=== PATIENT | male | born 1940 ===

== ENCOUNTER 2020-01-06 06:46 | Outpatient (REF) | payer MEDICARE, SELFPAY ==
[2020-01-06 11:08] LABS: MANUAL DIFF FLAG NO
[2020-01-06 11:13] LABS: Basophils Percent Auto 0.5 % (0-2); Eosinophils Absolute Auto 0.3 X10*3/uL (0.0-0.4); Eosinophils Percent Auto 3.3 % (0-4); Hematocrit 44.1 % (42-52); Hemoglobin 13.8 g/dl (14.0-18.0); Imm Gran Abs Auto 0.03 X10*3/uL (0.00-0.03); Imm Gran Pct Auto 0.4 % (0.0-0.4); Lymphocytes Absolute Auto 1.9 X10*3/uL (1.2-4.9); Lymphocytes Percent Auto 23.1 % (20-40); Mean Corpuscular HGB Conc 31.3 g/dl (31.0-36.0); Mean Corpuscular Hemoglobin 26.8 pg (27.0-33.0); Mean Corpuscular Volume 85.8 fL (80-98); Mean Platelet Volume 10.4 fL (9.4-12.4); Monocytes Absolute Auto 0.8 X10*3/uL (0.1-1.2); Monocytes Percent Auto 9.3 % (2-11); Neutrophils Absolute Auto 5.3 X10*3/uL (2.0-8.3); Neutrophils Percent Auto 63.4 % (45-73); Platelet Count 235 X10*3/uL (160-400); Red Blood Count 5.14 X10*6/uL (4.60-5.80); Red Cell Distribution Width 13.8 % (11.0-16.0); White Blood Count 8.4 X10*3/uL (4.8-10.8)
[2020-01-06 12:01] LABS: Alanine Aminotransferase 17 U/L (0-40); Albumin Level 4.2 g/dL (3.5-5.0); Alkaline Phosphatase 78 U/L (39-117); Anion Gap 15 (12-20); Aspartate Amino Transferase 18 U/L (5-37); Bilirubin Total 0.8 mg/dL (0.0-1.0); Blood Urea Nitrogen 21 mg/dL (9-16); Calcium 8.4 mg/dL (8.4-10.2); Carbon Dioxide 25 mmol/L (22-29); Chloride 106 mmol/L (96-108); Estimated Glomerular Filt Rate > 60; Glucose Random 95 mg/dL (60-115); Potassium 4.7 mmol/l (3.3-5.1); Sodium 141 mmol/L (135-145); Total Protein 6.6 g/dL (6.5-8.0)
== END 2020-01-06 06:47 | disposition home or self-care (01) ==
LOC: HO.HMGCLDS 06:46
PROVIDERS: PCP Internal Medicine; Visit Provider Internal Medicine
DX: Z13.89 Encounter for screening for other disorder (principal)
CPT/HCPCS: 36415; 80053; 85025

== ENCOUNTER 2020-06-26 07:09 | Outpatient (REF) | payer MEDICARE, SELFPAY ==
[2020-06-26 11:15] LABS: MANUAL DIFF FLAG NO
[2020-06-26 11:35] LABS: Basophils Absolute Auto 0.1 X10*3/uL (0.0-0.2); Basophils Percent Auto 0.6 % (0-2); Eosinophils Absolute Auto 0.3 X10*3/uL (0.0-0.4); Eosinophils Percent Auto 3.4 % (0-4); Hematocrit 42.3 % (42-52); Hemoglobin 13.5 g/dl (14.0-18.0); Imm Gran Abs Auto 0.03 X10*3/uL (0.00-0.03); Imm Gran Pct Auto 0.4 % (0.0-0.4); Lymphocytes Absolute Auto 1.9 X10*3/uL (1.2-4.9); Lymphocytes Percent Auto 24.1 % (20-40); Mean Corpuscular HGB Conc 31.9 g/dl (31.0-36.0); Mean Corpuscular Hemoglobin 27.5 pg (27.0-33.0); Mean Corpuscular Volume 86.2 fL (80-98); Mean Platelet Volume 10.1 fL (9.4-12.4); Monocytes Absolute Auto 0.7 X10*3/uL (0.1-1.2); Monocytes Percent Auto 8.4 % (2-11); Neutrophils Percent Auto 63.1 % (45-73); Platelet Count 230 X10*3/uL (160-400); Red Blood Count 4.91 X10*6/uL (4.60-5.80); Red Cell Distribution Width 13.5 % (11.0-16.0); White Blood Count 7.9 X10*3/uL (4.8-10.8)
[2020-06-26 12:05] LABS: Alanine Aminotransferase 18 U/L (0-40); Albumin Level 4.1 g/dL (3.5-5.0); Alkaline Phosphatase 76 U/L (39-117); Anion Gap 13 (12-20); Aspartate Amino Transferase 18 U/L (5-37); Bilirubin Total 0.7 mg/dL (0.0-1.0); Blood Urea Nitrogen 21 mg/dL (9-16); Calcium 8.9 mg/dL (8.4-10.2); Carbon Dioxide 27 mmol/L (22-29); Chloride 107 mmol/L (96-108); Cholesterol 143 mg/dL; Estimated Glomerular Filt Rate 59; Glucose Random 98 mg/dL (60-115); HDL Cholesterol 48 mg/dL; LDL Cholesterol Calculated 77 mg/dl; Potassium 4.7 mmol/L (3.3-5.1); Sodium 142 mmol/L (135-145); Total Protein 6.7 g/dL (6.5-8.0); Triglycerides 93 mg/dL
== END 2020-06-26 07:10 | disposition home or self-care (01) ==
LOC: HO.HMGCLDS 07:09
PROVIDERS: PCP Internal Medicine; Visit Provider Internal Medicine
DX: I10 Essential (primary) hypertension (principal); E78.00 Pure hypercholesterolemia, unspecified
CPT/HCPCS: 36415; 80053; 80061; 85025

== ENCOUNTER 2021-01-02 06:44 | Outpatient (REF) | payer MEDICARE, SELFPAY ==
[2021-01-02 12:16] LABS: Alanine Aminotransferase 18 U/L (0-40); Alkaline Phosphatase 70 U/L (39-117); Anion Gap 13 (12-20); Aspartate Amino Transferase 19 U/L (5-37); Bilirubin Total 0.5 mg/dL (0.0-1.0); Blood Urea Nitrogen 21 mg/dL (9-16); Calcium 8.7 mg/dL (8.4-10.2); Carbon Dioxide 26 mmol/L (22-29); Chloride 106 mmol/L (96-108); Cholesterol 135 mg/dL; Estimated Glomerular Filt Rate 54; Glucose Random 99 mg/dL (60-115); HDL Cholesterol 45 mg/dL; LDL Cholesterol Calculated 70 mg/dl; Potassium 4.4 mmol/L (3.3-5.1); Sodium 141 mmol/L (135-145); Total Protein 6.4 g/dL (6.5-8.0); Triglycerides 103 mg/dL
== END 2021-01-02 06:45 | disposition home or self-care (01) ==
LOC: HO.HMGCLDS 06:44
PROVIDERS: PCP Internal Medicine; Visit Provider Internal Medicine
DX: E78.00 Pure hypercholesterolemia, unspecified (principal); I10 Essential (primary) hypertension
CPT/HCPCS: 36415; 80053; 80061

== ENCOUNTER → 2021-03-21 15:15 | Outpatient (BNVA) | payer MEDICARE, SELFPAY | PROVIDERS: PCP Internal Medicine; Visit Provider Internal Medicine Cardiovascular Disease | DX: R06.00 Dyspnea, unspecified (principal) | CPT/HCPCS: 93005; 99202 ==

== ENCOUNTER → 2021-04-17 09:24 | Outpatient (REF) | payer MEDICARE, SELFPAY ==
--- NOTE | ~2021-04-17 | NM_ITS ---
Lexiscan Myocardial perfusion study Indication: Shortness of breath, assess for coronary disease and ischemia Technique: The patient was brought in for a Lexiscan perfusion study on 04/17/2021 and was injected 0.4 mg of Lexiscan intravenously. Within a minute of this injection 35 mCi of sestamibi was given intravenously. Images were obtained using the SPECT gamma camera interlaced with the gating device. Images were obtained in supine position. Resting perfusion study was performed on 04/18/2021. Patient was administered 30 mCi of sestamibi intravenously at rest. Images were then obtained in supine position. Total DLP 85mGy-cm. Images were processed with the software and compared side to side in short axis, horizontal long axis and vertical long axis views. Findings: Raw acquisition was reviewed. The stress perfusion study showed diminished tracer uptake in the distal part of lateral wall; apex; inferior wall. There is good improvement with CT attenuation correction and hence suggestive of some combination of soft tissue as well as diaphragmatic attenuation artifact. Gating not performed due to bigeminy. Resting study shows diminished tracer uptake in the distal part of lateral wall. There is improvement with CT attenuation correction and hence could be from soft tissue attenuation artifact. Gating not performed due to bigeminy. The findings are consistent with no clear reversible or fixed perfusion defects. NM/NM cardiolite stress test Impression: 1. Myocardial perfusion imaging study shows likely normal myocardial perfusion. No clear evidence of any ischemia or infarction. 2. Gating not performed due to PVCs.
--- NOTE | 2021-04-17 09:28 | CA_ITS ---
Acquisition Time: 2021-04-17 09:28:54 Total Exercise Time: 00:04:11 Test Indications: Dyspnea Medications: AMLODIPINE ATORVASTATIN GABAPENTIN Protocol: HAMMAD Max HR: 123 BPM 89% of Pred: 138 BPM Max BP: 142/052 mmHG Max Work Load: 6.0 METS Exercise stress test with exercise 4 min 11 sec of Hammad protocol, with moderate shortness of breath, difficulty with speed of treadmill, suboptiimal heart rate and need to stop exercise. Assisted to sitting position and when breathing improved, testing changed to a pharmacological stress test while sitting and kicking his legs, without anginal symptoms, with frequent PACs, and isolated PVCs, 2 ventricular cuplets, with normotensive response to injection, with nondiagnostic EKG for ischemia. Nuclear images pending. Test reviewed with Dr Kerns. Referred By: Jaxson Kerns Overread By: DAKOTA MARADIAGA
== END ==
LOC: HO.CARD 09:24
PROVIDERS: Visit Provider Internal Medicine Cardiovascular Disease
DX: R06.00 Dyspnea, unspecified (principal)
CPT/HCPCS: 78452; 93017; A9500; J0280; J2785

== ENCOUNTER → 2021-05-16 09:25 | Outpatient (BNVA) | payer MEDICARE, SELFPAY | PROVIDERS: PCP Internal Medicine; Referring Provider Internal Medicine; Visit Provider Internal Medicine Cardiovascular Disease | DX: R06.00 Dyspnea, unspecified (principal) | CPT/HCPCS: 99212 ==

== ENCOUNTER → 2021-05-21 08:11 | Outpatient (REF) | payer MEDICARE, SELFPAY ==
--- NOTE | 2021-05-21 08:15 | CA_ITS ---
Transthoracic Echocardiogram Patient (Last, First, Middle): Johnathan Deleon, Gender: Male Date of : 1940 Age: 80 Procedure Date: 05/21/2021 Procedure Type: Transthoracic Echocardiogram Location: OP Height: 172.72 cm Weight: 90.72 kg BSA: 2.04 m2 Heart Rate: bpm BP: 120 / 68 mmHg Physical Therapy Nurse: NENA Referring MD: Jaxson Kerns MD Symptoms: R06.00 - Dyspnea, unspecified Study Quality: Fair ECG Rhythm: Sinus Conclusions: - The left ventricular systolic function is normal. The calculated ejection fraction is 61% by biplane method. - Mildly increased right ventricular cavity size. - There is mild calcification of the aortic valve. - No obvious valvular pathology seen on this study. Findings Left Ventricle Normal left ventricular cavity size. There is normal left ventricular wall thickness. The left ventricular systolic function is normal. The calculated ejection fraction is 61% by biplane method. There is no evidence of regional wall motion abnormalities. Diastolic function is normal for age. Right Ventricle Mildly increased right ventricular cavity size. There is normal right ventricular systolic function. Atria The left atrium is mildly dilated. The right atrium is normal in size. Aortic Valve There is a normal trileaflet aortic valve. There is mild calcification of the aortic valve. There is no aortic valve stenosis. There is no aortic valve regurgitation. Mitral Valve The mitral valve appears normal. There is trace mitral valve regurgitation. There is no mitral valve stenosis. Pulmonic Valve The pulmonic valve was not well visualized. Tricuspid Valve Normal tricuspid valve structure. There is trace tricuspid valve regurgitation. The pulmonary artery systolic pressure is normal. Great Vessels The asc aorta is normal in size. Venous The inferior vena cava is normal in size and collapses greater than 50% with inspiration. Pericardium/Pleural There is no evidence of pericardial effusion. Prior Study Comparison No prior study available for comparison. Recommendations, Care & Conclusions No obvious valvular pathology seen on this study. Measurements 2D Linear Measurements IVSd: 1.05 0.6-0.9/0.6-1.0 cm LVIDd: 4.95 3.9-5.3/4.2-5.9 cm LVIDd Index: 2.43 2.4-3.2/2.2-3.1 cm/m2 LVIDs: 2.97 2.0-3.6 cm LVPWd: 0.92 0.7-1.1 cm LA Diam: 3.50 2.7-3.8/3.0-4.0 cm LAIDs Index: 1.72 1.5-2.3 cm/m2 LV Mass: 218.79 67-162/88-224 g LV Mass Index: 107.25 43-95/49-115 g/m2 LVOT Diam: 2.30 3.0+(-)1.3 cm 2D Systolic Function EF 4C: 62.00 >55% EF 2C: 60.30 >55% EF BiP: 60.80 >55% Mitral Valve MV Pk E: 0.76 MV PK A: 0.80 MV Decel Time: 210.00 E/A: 0.90 E'Lateral: 6.85 E'Medial: 5.44 E/E' Med: 14.00 E/E' Lat: 11.10 PHT: 61.00 MVA PHT: 3.61 Decel [place]: 3.62 Aortic Valve AoV Pk Markus: 1.09 AoV Mn Markus: 0.78 AoV VTI: 0.23 AoV Pk Grad: 5.00 Aov Mn Grad: 3.00 TATIANNA Cont.VTI: 2.82 LVOT LVOT Pk Markus: 0.78 LVOT Mn Markus: 0.53 LVOT VTI: 0.16 LVOT Pk Grad: 2.00 LVOT Mn Grad: 1.00 LVOT Diam: 2.30 LVOT Area: 4.15 Diastolic Function MV Pk E: 0.76 MV Pk A: 0.80 E/A: 0.90 E'Medial: 5.44 E/E' Med: 14.00 E' Laterial: 6.85 E/E' Lat: 11.10 Right Ventricle TAPSE (mm): 27.30 TVS' Markus: 13.40 Tricuspid Valve TR Pk Markus: 2.24 TR Pk Grad: 20.00 RA Press: 3.00 RVSP: 23.00 Great Vessels Aorta Sinus of Valsalva: 3.80 2.0-3.[address] [place]: 2.89 1.7-3.4 cm Ao Asc: 3.80 2.1-3.4 cm Updated in Other Vendor System with Status of Final Afshin Carbajal MD electronically signed on 05/22/2021 4:53:15 PM with status of Final
== END ==
LOC: HO.CARD 08:11
PROVIDERS: Visit Provider Internal Medicine Cardiovascular Disease
DX: R06.00 Dyspnea, unspecified (principal)
CPT/HCPCS: 93306

== ENCOUNTER 2021-07-04 06:42 | Outpatient (REF) | payer MEDICARE, SELFPAY ==
[2021-07-04 12:18] LABS: Alanine Aminotransferase 16 U/L (0-40); Albumin Level 3.9 g/dL (3.5-5.0); Alkaline Phosphatase 73 U/L (39-117); Anion Gap 11 (12-20); Aspartate Amino Transferase 19 U/L (5-37); Bilirubin Total 0.4 mg/dL (0.0-1.0); Blood Urea Nitrogen 25 mg/dL (9-16); Calcium 8.9 mg/dL (8.4-10.2); Carbon Dioxide 27 mmol/L (22-29); Chloride 106 mmol/L (96-108); Estimated Glomerular Filt Rate 49; Glucose Random 113 mg/dL (60-115); Potassium 4.5 mmol/L (3.3-5.1); Sodium 139 mmol/L (135-145); Total Protein 6.4 g/dL (6.5-8.0)
[2021-07-04 12:47] LABS: Vitamin B12 > 2000 pg/mL (200-900)
== END 2021-07-04 06:43 | disposition home or self-care (01) ==
LOC: HO.HMGCLDS 06:42
PROVIDERS: Visit Provider Internal Medicine
DX: Z00.01 Encounter for general adult medical examination with abnormal findings (principal); G30.1 Alzheimer's disease with late onset; E78.00 Pure hypercholesterolemia, unspecified; Z68.35 Body mass index [BMI] 35.0-35.9, adult
CPT/HCPCS: 36415; 80053; 82607

== ENCOUNTER → 2021-08-15 13:13 | Outpatient (BNVA) | payer MEDICARE, SELFPAY | PROVIDERS: PCP Internal Medicine; Referring Provider Internal Medicine; Visit Provider Internal Medicine Cardiovascular Disease | DX: G47.30 Sleep apnea, unspecified (principal); R06.00 Dyspnea, unspecified | CPT/HCPCS: 99212 ==

== ENCOUNTER 2021-09-17 07:39 | Outpatient (REF) | payer MEDICARE, SELFPAY ==
[2021-09-17 09:31] LABS: Hematocrit 41.3 % (42.0-52.0); Hemoglobin 13.2 g/dl (14.0-18.0); Mean Corpuscular Hemoglobin 27.2 pg (27.0-33.0); Mean Corpuscular Volume 85.2 fL (80.0-98.0); Mean Platelet Volume 9.5 fL (9.4-12.4); Platelet Count 201 X10*3/uL (160-400); Red Blood Count 4.85 X10*6/uL (4.60-5.80); Red Cell Distribution Width 13.6 % (11.0-16.0); White Blood Count 8.3 X10*3/uL (4.8-10.8)
[2021-09-17 09:51] LABS: Prothrombin Time 10.9 SEC (10.0-13.1)
[2021-09-17 10:13] LABS: Anion Gap 12 (12-20); Blood Urea Nitrogen 21 mg/dL (9-16); Calcium 8.9 mg/dL (8.4-10.2); Carbon Dioxide 25 mmol/L (22-29); Chloride 106 mmol/L (96-108); Estimated Glomerular Filt Rate 56; Glucose Random 107 mg/dL (60-115); Potassium 4.6 mmol/L (3.3-5.1); Sodium 138 mmol/L (135-145)
--- NOTE | 2021-09-17 12:07 | PFT_ITS ---
Forced vital capacity 79%, FEV1 53%, FEV1 over FVC ratio is 47. QFF64-66 25% and MVV 42%. Post bronchodilator therapy, there is no change. Total lung capacity 88%. Residual volume 110%. Diffusion capacity 41%. DL/VA 56. CONCLUSION: Severe obstructive airway disorder. No response to bronchodilator therapy. Clinical correlation recommended. MD IGSELLE Whittaker/MODL / [id number]
== END 2021-09-17 07:40 | disposition home or self-care (01) ==
LOC: HO.RESP 07:39
PROVIDERS: PCP Internal Medicine; Visit Provider Internal Medicine Cardiovascular Disease
DX: R06.00 Dyspnea, unspecified (principal)
CPT/HCPCS: 36415; 80048; 85027; 85610; 94060; 94727; 94729

== ENCOUNTER 2021-10-03 06:21 | Outpatient (REF) | payer MEDICARE, SELFPAY ==
[2021-10-03 11:35] LABS: Alanine Aminotransferase 19 U/L (0-40); Albumin Level 4.1 g/dL (3.5-5.0); Alkaline Phosphatase 83 U/L (39-117); Anion Gap 12 (12-20); Aspartate Amino Transferase 17 U/L (5-37); Bilirubin Total < 0.2 mg/dL (0.0-1.0); Blood Urea Nitrogen 26 mg/dL (9-16); Calcium 8.5 mg/dL (8.4-10.2); Carbon Dioxide 25 mmol/L (22-29); Chloride 107 mmol/L (96-108); Estimated Glomerular Filt Rate 53; Glucose Random 99 mg/dL (60-115); Potassium 4.7 mmol/L (3.3-5.1); Sodium 139 mmol/L (135-145); Total Protein 6.6 g/dL (6.5-8.0)
[2021-10-03 11:53] LABS: Prostate Specific Antigen 2.92 ng/mL (<0.05-4.0)
== END 2021-10-03 06:22 | disposition home or self-care (01) ==
LOC: HO.HMGCLDS 06:21
PROVIDERS: Visit Provider Internal Medicine
DX: Z12.5 Encounter for screening for malignant neoplasm of prostate (principal)
CPT/HCPCS: 36415; 80053; 84153

== ENCOUNTER → 2021-10-09 12:54 | Outpatient (BNVA) | payer MEDICARE, SELFPAY | PROVIDERS: PCP Internal Medicine; Referring Provider Internal Medicine; Visit Provider Nurse Practitioner Family | DX: I25.10 Atherosclerotic heart disease of native coronary artery without angina pectoris (principal); R06.00 Dyspnea, unspecified; R94.2 Abnormal results of pulmonary function studies; I10 Essential (primary) hypertension; E78.5 Hyperlipidemia, unspecified; Z48.812 Encounter for surgical aftercare following surgery on the circulatory system; Z87.891 Personal history of nicotine dependence; Z98.890 Other specified postprocedural states; Z79.899 Other long term (current) drug therapy | CPT/HCPCS: 99212 ==

== ENCOUNTER 2022-01-07 10:33 | Outpatient (REF) | payer MEDICARE, SELFPAY ==
--- NOTE | ~2022-01-07 | XR_ITS ---
EXAMINATION: XR CHEST CLINICAL INFORMATION: COPD COMPARISON: None TECHNIQUE: 2 views of the chest were obtained. FINDINGS: The cardiac silhouette does not appear enlarged. Hilar and mediastinal contours are unremarkable. There is extensive left pleural thickening and pleural calcification. No pleural effusion or pneumothorax. The right lung is clear. Left lung is somewhat obscured due to extensive pleural thickening and calcification. There are degenerative changes of the spine. XR/XR chest 2V IMPRESSION: Extensive left pleural thickening and pleural calcification.
== END 2022-01-07 10:34 | disposition home or self-care (01) ==
LOC: HO.XRAY 10:33
PROVIDERS: PCP Internal Medicine; Visit Provider Internal Medicine
DX: F44.9 Dissociative and conversion disorder, unspecified (principal); R06.00 Dyspnea, unspecified; G47.33 Obstructive sleep apnea (adult) (pediatric)
CPT/HCPCS: 71046; 99202

== ENCOUNTER 2022-01-10 06:43 | Outpatient (REF) | payer MEDICARE, SELFPAY ==
[2022-01-10 11:29] LABS: MANUAL DIFF FLAG NO
[2022-01-10 11:43] LABS: Basophils Absolute Auto 0.1 X10*3/uL (0.0-0.2); Basophils Percent Auto 0.8 % (0-2); Eosinophils Absolute Auto 0.2 X10*3/uL (0.0-0.4); Eosinophils Percent Auto 3.1 % (0-4); Hematocrit 42.6 % (42.0-52.0); Hemoglobin 13.5 g/dl (14.0-18.0); Imm Gran Abs Auto 0.02 X10*3/uL (0.00-0.03); Imm Gran Pct Auto 0.3 % (0.0-0.4); Lymphocytes Absolute Auto 1.6 X10*3/uL (1.2-4.9); Lymphocytes Percent Auto 20.9 % (20-40); Mean Corpuscular HGB Conc 31.7 g/dl (31.0-36.0); Mean Corpuscular Hemoglobin 27.1 pg (27.0-33.0); Mean Corpuscular Volume 85.5 fL (80.0-98.0); Mean Platelet Volume 9.8 fL (9.4-12.4); Monocytes Absolute Auto 0.6 X10*3/uL (0.1-1.2); Monocytes Percent Auto 8.2 % (2-11); Neutrophils Percent Auto 66.7 % (45-73); Platelet Count 231 X10*3/uL (160-400); Red Blood Count 4.98 X10*6/uL (4.60-5.80); Red Cell Distribution Width 14.1 % (11.0-16.0); White Blood Count 7.5 X10*3/uL (4.8-10.8)
[2022-01-10 12:26] LABS: Alanine Aminotransferase 19 U/L (0-40); Alkaline Phosphatase 78 U/L (39-117); Anion Gap 14 (12-20); Aspartate Amino Transferase 24 U/L (5-37); Bilirubin Total 0.5 mg/dL (0.0-1.0); Blood Urea Nitrogen 21 mg/dL (9-16); Calcium 8.8 mg/dL (8.4-10.2); Carbon Dioxide 24 mmol/L (22-29); Chloride 106 mmol/L (96-108); Cholesterol 131 mg/dL; Estimated Glomerular Filt Rate > 60; Glucose Random 106 mg/dL (60-115); HDL Cholesterol 46 mg/dL; LDL Cholesterol Calculated 70 mg/dl; Potassium 4.4 mmol/L (3.3-5.1); Sodium 140 mmol/L (135-145); Total Protein 6.5 g/dL (6.5-8.0); Triglycerides 78 mg/dL
[2022-01-10 12:36] LABS: Thyroid Stimulating Hormone 2.11 uIU/mL (0.32-4.0)
[2022-01-13 12:42] LABS: Calcium (PTHI) 8.9 mg/dL (8.6-10.3); PTHI 58 pg/mL (16-77)
== END 2022-01-10 06:44 | disposition home or self-care (01) ==
LOC: HO.HMGCLDS 06:43
PROVIDERS: PCP Internal Medicine; Visit Provider Internal Medicine
DX: I10 Essential (primary) hypertension (principal); N18.9 Chronic kidney disease, unspecified; N40.1 Benign prostatic hyperplasia with lower urinary tract symptoms; R06.02 Shortness of breath
CPT/HCPCS: 36415; 80053; 80061; 83970; 84443; 85025

== ENCOUNTER → 2022-04-08 14:49 | Outpatient (BNVA) | payer MEDICARE, SELFPAY | PROVIDERS: PCP Internal Medicine; Visit Provider Nurse Practitioner Family | DX: N40.1 Benign prostatic hyperplasia with lower urinary tract symptoms (principal); R39.15 Urgency of urination; R35.0 Frequency of micturition | CPT/HCPCS: 51798; 99202 ==

== ENCOUNTER → 2022-04-15 09:39 | Outpatient (BNVA) | payer MEDICARE, SELFPAY | PROVIDERS: PCP Internal Medicine; Visit Provider Internal Medicine | DX: J44.9 Chronic obstructive pulmonary disease, unspecified (principal); G47.33 Obstructive sleep apnea (adult) (pediatric) | CPT/HCPCS: 99212 ==

== ENCOUNTER → 2022-05-12 15:04 | Outpatient (BNVA) | payer MEDICARE, SELFPAY | PROVIDERS: PCP Internal Medicine; Referring Provider Internal Medicine; Visit Provider Internal Medicine Cardiovascular Disease | DX: R06.00 Dyspnea, unspecified (principal) | CPT/HCPCS: 93005; 99212 ==

== ENCOUNTER 2022-05-22 09:38 | Outpatient (REF) | payer MEDICARE, SELFPAY ==
--- NOTE | ~2022-05-22 | US_ITS ---
EXAMINATION: US RETROPERITONEAL COMPLETE (RENAL) CLINICAL INFORMATION: Benign prostatic hyperplasia with lower urinary tract symptoms. COMPARISON: None available. TECHNIQUE: Real-time imaging of the benign prostatic hyperplasia with lower urinary tract symptoms. kidneys and bladder. FINDINGS: RIGHT KIDNEY: 12.1 x 5.6 x 6.3 cm (SAG x AP x TRV). The kidney is normal in size, contour, and echogenicity. Renal cortical thickness is normal. Parapelvic cysts are most likely present which need no additional imaging or follow-up. No calculi or focal solid parenchymal lesions. No hydronephrosis. LEFT KIDNEY: 12.5 x 4.6 x 5.1 cm (SAG x AP x TRV). The kidney is normal in size, contour, and echogenicity. Renal cortical thickness is normal. Pelvic cysts are most likely present which need no additional imaging or follow-up. No calculi or solid focal parenchymal lesions. No hydronephrosis. BLADDER: Well distended and normal. Bilateral ureteral jets are demonstrated. Prevoid bladder volume is 221.7 mL. Postvoid bladder volume is 61 mL. ADDITIONAL FINDINGS: Prostate is enlarged at 58 mL US/US retroperitoneal comp IMPRESSION: BPH with 58 mL prostate and 61 mL postvoid residual.
== END 2022-05-22 09:39 | disposition home or self-care (01) ==
LOC: HO.HMGCX 09:38
PROVIDERS: PCP Internal Medicine; Visit Provider Nurse Practitioner Family
DX: N40.1 Benign prostatic hyperplasia with lower urinary tract symptoms (principal); R39.15 Urgency of urination
CPT/HCPCS: 76770

== ENCOUNTER 2022-06-03 12:23 | Outpatient (REF) | payer MEDICARE, SELFPAY | END 2022-06-03 12:24 | disposition home or self-care (01) | LOC: HO.HMGCLDS 12:23 | PROVIDERS: PCP Internal Medicine; Visit Provider Nurse Practitioner Family | DX: Z12.5 Encounter for screening for malignant neoplasm of prostate (principal); N40.1 Benign prostatic hyperplasia with lower urinary tract symptoms | CPT/HCPCS: 36415; 84153 ==

== ENCOUNTER → 2022-06-05 09:08 | Outpatient (BNVA) | payer MEDICARE, SELFPAY | PROVIDERS: PCP Internal Medicine; Visit Provider Nurse Practitioner Family | DX: N40.1 Benign prostatic hyperplasia with lower urinary tract symptoms (principal); R97.20 Elevated prostate specific antigen [PSA] | CPT/HCPCS: 51798; 99212 ==

== ENCOUNTER 2022-07-09 06:36 | Outpatient (REF) | payer MEDICARE, SELFPAY ==
[2022-07-09 11:09] LABS: MANUAL DIFF FLAG NO
[2022-07-09 11:32] LABS: Basophils Absolute Auto 0.1 X10*3/uL (0.0-0.2); Basophils Percent Auto 0.6 % (0-2); Eosinophils Absolute Auto 0.3 X10*3/uL (0.0-0.4); Hemoglobin 12.7 g/dl (14.0-18.0); Imm Gran Abs Auto 0.04 X10*3/uL (0.00-0.03); Imm Gran Pct Auto 0.5 % (0.0-0.4); Lymphocytes Absolute Auto 1.6 X10*3/uL (1.2-4.9); Mean Corpuscular HGB Conc 31.8 g/dl (31.0-36.0); Mean Corpuscular Hemoglobin 27.5 pg (27.0-33.0); Mean Corpuscular Volume 86.6 fL (80.0-98.0); Mean Platelet Volume 10.5 fL (9.4-12.4); Monocytes Absolute Auto 0.7 X10*3/uL (0.1-1.2); Neutrophils Absolute Auto 5.7 x10*3/uL (2.0-8.3); Neutrophils Percent Auto 67.9 % (45-73); Platelet Count 212 X10*3/uL (160-400); Red Blood Count 4.62 X10*6/uL (4.60-5.80); Red Cell Distribution Width 14.1 % (11.0-16.0); White Blood Count 8.4 X10*3/uL (4.8-10.8)
[2022-07-09 12:10] LABS: Alanine Aminotransferase 13 U/L (0-40); Albumin Level 3.7 g/dL (3.5-5.0); Alkaline Phosphatase 78 U/L (39-117); Anion Gap 12 (12-20); Aspartate Amino Transferase 17 U/L (5-37); Bilirubin Total 0.3 mg/dL (0.0-1.0); Blood Urea Nitrogen 19 mg/dL (9-16); Calcium 8.9 mg/dL (8.4-10.2); Carbon Dioxide 26 mmol/L (22-29); Chloride 109 mmol/L (96-108); Estimated Glomerular Filt Rate 53; Glucose Random 108 mg/dL (60-115); Potassium 4.5 mmol/L (3.3-5.1); Sodium 142 mmol/L (135-145); Total Protein 6.1 g/dL (6.5-8.0)
== END 2022-07-09 06:37 | disposition home or self-care (01) ==
LOC: HO.HMGCLDS 06:36
PROVIDERS: PCP Internal Medicine; Visit Provider Internal Medicine
DX: Z00.00 Encounter for general adult medical examination without abnormal findings (principal); N40.1 Benign prostatic hyperplasia with lower urinary tract symptoms; J44.9 Chronic obstructive pulmonary disease, unspecified; I10 Essential (primary) hypertension; F79 Unspecified intellectual disabilities
CPT/HCPCS: 36415; 80053; 85025

== ENCOUNTER 2022-07-14 11:06 | Outpatient (REF) | payer MEDICARE, SELFPAY ==
--- NOTE | ~2022-07-14 | XR_ITS ---
EXAMINATION: XR BILATERAL HIPS CLINICAL INFORMATION: Pain COMPARISON: None available. TECHNIQUE: 2 views of each hip were obtained. FINDINGS: There is neither fracture or dislocation of either hip. There is mild narrowing of both the left and right femoral acetabular joint spaces. Small pelvic calcifications are likely vascular in nature. XR/XR hips WINDY min 3V IMPRESSION: Mild degenerative changes of both hips without fracture or dislocation.
== END 2022-07-14 11:07 | disposition home or self-care (01) ==
LOC: HO.XRAY 11:06
PROVIDERS: PCP Internal Medicine; Visit Provider Internal Medicine
DX: M16.0 Bilateral primary osteoarthritis of hip (principal)
CPT/HCPCS: 73522

== ENCOUNTER 2022-10-16 08:49 | Outpatient (AMB) | payer MEDICARE, SELFPAY ==
[2022-10-16 08:57] VITALS: BP 142/58; PULSE 60; O2SAT 94; BMI 38.2
--- NOTE | 2022-10-16 08:57 | A.OFFVIS_ITS ---
Intake Vital Signs 10/16/22 08:57 Height 5 ft 5 in Weight 229 lb 4.492 oz BMI 38.2 BP 142/58 H Blood Pressure Location Rt brachial Position Sitting Pulse 60 Pulse Source Pulse Oximeter Pulse Oximetry (%) 94 Oxygen Delivery Method Room Air Intake Visit Reasons: Abnormal PFT Intake Note: Pt presents today for a f/u and is looking to discuss the chest x-ray from his last appointment. Allergies No Known Allergies Allergy (Verified 10/16/22 11:55) Do you need a note to return to daycare/school/sports/work: No HPI Abnormal PFT HPI Details This 81 years old gentleman mostly 6 [place] Citizen speaking, comes along with his who speaks [place]ian. Patient also understands in list to some extent. He is grossly obese, and not able. To lose much weight He has history of only mild degree of obstructive sleep apnea, which is being treated with conservative measures. He tries to sleep in lateral position. Claims that. He is sleeping okay Breathing elizondo he does get short of breath on walking more than a block. Or if he has to climb stairs. He has mild intermittent cough, no wheezing, Overall his breathing status is remaining stable. He uses Spiriva Respimat 2 inhalation daily in the morning, and does not need to use the albuterol. He had a chest x-ray on 01/07/2022, and wants to know the results. His is also enquiring if he would be candidate to get a handicap plaque for his car. [facility] Medical History COPD (chronic obstructive pulmonary disease) JOSEPH (obstructive sleep apnea) Surgical History History of cataract surgery Family History Mother Colon cancer Father No problems noted. Brother Heart disease Social History Alcohol intake: current Alcohol intake frequency: holidays/special occasions only Patient Tobacco Use Status: Former Tobacco user Quit Date: 1989 Years Smoked: 50 +/- Review of Systems Const All systems reviewed & are unremarkable except as noted in HPI and below Eyes Reports no additional complaints ENT Reports no additional complaints Card Denies chest pain, Denies irregular heart rhythm and Reports dyspnea on exertion Resp Reports as per HPI and Reports dyspnea on exertion GI Reports no additional complaints Reports no additional complaints Musc Reports no additional complaints Skin/Breast Reports system reviewed and no additional complaints, except as documented Neuro Reports no additional complaints Psych Reports no additional complaints Endo Reports no additional complaints Physical Exam Vital Signs: Last Vital Signs Pulse 60 10/16/22 08:57 BP 142/58 H 10/16/22 08:57 Pulse Ox 94 10/16/22 08:57 Oxygen Delivery Method Room Air 10/16/22 08:57 BMI result Body Mass Index 38.2 Const General: healthy appearing (EXCEPT FOR OVERWEIGHT), comfortable, no acute distress, alert and awake Orientation/consciousness: patient oriented x3 HEENT Head: Yes normal to inspection General nose exam: No nasal polyps present and No nasal discharge present Face and sinus: Yes sinuses nontender Mouth: oropharynx normal Throat: Yes posterior oropharynx normal Eyes General: appearance normal, both eyes and all related structures Neck Neck: Yes normal visual inspection, Yes no lymphadenopathy, Yes trachea midline and Yes no JVD Thyroid: Thyroid normal Chest Chest palpation & inspection: normal inspection of the chest, normal palpation of entire chest wall and no tenderness Resp Other: Percussion note is resonant, has good breath sounds on both sides. Slightly prolonged expiratory phase. Has a few exp. wheezes over the lower lobes. Cardio Palpation: normal PMI Rate: regular rate Rhythm: regular rhythm Heart sounds: no gallops and no murmurs Peripheral pulses: Peripheral pulses 2+ throughout GI Palpation (GI): Soft to palpation, nontender, No hepatosplenomegaly present, no masses and Other GI palpation findings present (Abdomen is moderately obese and slightly protuberant) Auscultation: normal bowel sounds Back/Spine/Pelvis Thoracic/Lumbar Spine: thoracic and lumbar spine normal to inspection Skin General skin exam: no rashes or lesions noted Neuro General: patient oriented x3 and no focal motor deficits Cranial nerves: Yes CN's II-XII intact bilaterally Extrem General: Yes normal to inspection, Yes no clubbing, cyanosis or edema and Yes no calf tenderness Psych Appearance: grossly normal and well kempt Speech and movement: Normal speech and movement present Office Procedures Spirometry Testing Spirometry Comments: Spirometry done in the office, Dr. Whyte has the results results scanned to his chart. 70464- Spirometry Results Reviewed Results Reviewed: CHEST XRAY ON 01/07/22 The cardiac silhouette does not appear enlarged. Hilar and mediastinal contours are unremarkable. There is extensive left pleural thickening and pleural calcification. No pleural effusion or pneumothorax. The right lung is clear. Left lung is somewhat obscured due to extensive pleural thickening and calcification. There are degenerative changes of the spine. EXTENSIVE PLEURAL THICKENING AND CALCIFICATION ON THE LEFT SIDE, PROBABLY DUE TO AN OLD RESPIRATORY INFECTION. SPIROMETRY today in office FGE=189 % FEV1= 72 % FEF 25-75 % 48 % C/W MODERATELY SEVERE OBSTRUCTIVE AIRWAY DISORDER, FEV1 IS 1.71 L ( this is above the threshold for getting a handicap plaque ) explained to the patient and his I WALKED WITH HIM IN THE HALLWAY FOR 5 MINUTES, ON ROOM AIR HE WAS ONLY SLIGHTLY SHORT OF BREATH, BUT DID NOT. DEVELOP ANY DISTRESS O2 SAT AT REST 95%, AFTER WALK 93%. SO THERE WAS NO EXERTIONAL HYPOXEMIA. Assessment & Plan Assessment & Plan (1) COPD (chronic obstructive pulmonary disease): Comment: PATIENT DOES HAVE HISTORY OF SMOKING IN THE PAST. THERE IS EVIDENCE OF MODERATELY SEVERE OBSTRUCTIVE AIRWAY DISORDER, AT PRESENT HE IS DOING FAIRLY WELL, EXCEPT FOR MILD TO MODERATE DYSPNEA ON EXERTION. TX:. CONTINUE TO USE SPIRIVA RESPIMAT 2.5 2 INHALATION DAILY. DO DEEP BREATHING EXERCISES, 3 TIMES A DAY. TRY TO LOSE WEIGHT. Code(s): J44.9 - Chronic obstructive pulmonary disease, unspecified (2) JOSEPH (obstructive sleep apnea): Comment: JOSEPH IS VERY MILD RDI 6.2 ONLY BORDERLINE NOCTURNAL HYPOXEMIA. FOR THIS , HE DOES NOT NEED TO START ON CPAP THERAPY. HAS BEEN ADVISED TO LOSE 5-10 LB OF WEIGHT. SHOULD ALSO SLEEP IN LATERAL POSITION ALL THE TIMES . Code(s): G47.33 - Obstructive sleep apnea (adult) (pediatric) (3) MCCOLLUM (dyspnea on exertion): Comment: MODERATE DYSPNEA ON EXERTION IS CONSISTENT WITH MODERATELY SEVERE COPD , AND BEING OVERWEIGHT, NO EXERCISE INDUCED HYPOXEMIA WAS NOTED. Code(s): R06.00 - Dyspnea, unspecified Orders: Orders AMB Spirometry Testing Today J44.9 - Chronic obstructive pulmonary disease, unspecified Coding Level of Care Code Est Pt Level 4 (70684) Diagnoses COPD (chronic obstructive pulmonary disease) J44.9 JOSEPH (obstructive sleep apnea) G47.33 MCCOLLUM (dyspnea on exertion) R06.00 CPT Codes Spirometry - CPT: 09160- Spirometry ([id number])
== END 2022-10-16 09:50 | disposition home or self-care (01) ==
PROVIDERS: PCP Internal Medicine; Visit Provider Internal Medicine
DX: J44.9 Chronic obstructive pulmonary disease, unspecified (principal); G47.33 Obstructive sleep apnea (adult) (pediatric); R06.00 Dyspnea, unspecified
CPT/HCPCS: 94010; 99214

== ENCOUNTER → 2022-10-16 08:49 | Outpatient (BNVA) | payer MEDICARE, SELFPAY | PROVIDERS: PCP Internal Medicine; Visit Provider Internal Medicine | DX: J44.9 Chronic obstructive pulmonary disease, unspecified (principal); G47.33 Obstructive sleep apnea (adult) (pediatric); R06.00 Dyspnea, unspecified; Z79.899 Other long term (current) drug therapy | CPT/HCPCS: 94010; 99212 ==

== ENCOUNTER 2022-12-01 06:05 | Outpatient (REF) | payer MEDICARE, SELFPAY ==
[2022-12-01 13:16] LABS: Prostate Specific Antigen 2.15 ng/mL (<0.05-4.0)
== END 2022-12-01 06:06 | disposition home or self-care (01) ==
LOC: HO.HMGCLDS 06:05
PROVIDERS: PCP Internal Medicine; Visit Provider Nurse Practitioner Family
DX: Z12.5 Encounter for screening for malignant neoplasm of prostate (principal); N40.1 Benign prostatic hyperplasia with lower urinary tract symptoms; R97.20 Elevated prostate specific antigen [PSA]
CPT/HCPCS: 36415; 84153

== ENCOUNTER 2022-12-04 14:02 | Outpatient (AMB) | payer MEDICARE, SELFPAY ==
--- NOTE | 2022-12-04 14:03 | MHC.OFFVIS ---
Intake Intake Visit Reasons: 6m/labs Intake Note: Patient is present for follow up elevated psa/lab/BPH Urology Medications: terazosin, finasteride Blood Thinner: aspirin PVR: 0ml's Assistant Speech Language Pathologist Required: No Accompanied by: Self / Same As Patient Allergies No Known Allergies Allergy (Verified 12/04/22 14:41) Medication List - Last Reconciled 12/04/22 by FOZIA Park amlodipine 5 mg PO DAILY aspirin 81 mg PO DAILY atorvastatin 40 mg PO DAILY finasteride 5 mg PO DAILY 90 days Spiriva Respimat 2.5 mcg/actuation (tiotropium bromide) 2 puffs inhalation QAM NS terazosin 5 mg PO BEDTIME 90 days HPI HPI Comments History of Present Illness Details Johnathan is a pleasant 82-year-old male patient of Dr. Sheriff who was accompanied by his at today's visit. He has a past medical history of COPD and JOSEPH. He is being seen today for a follow up of his elevated PSA and lower urinary tract symptoms. In discussion with the patient today reports to be doing and feeling well. Recent PSA results reviewed with the patient and his today as noted below. Previous workup has included a retroperitoneal ultrasound that showed bilateral kidneys with no calculi, lesions, or hydronephrosis noted. The bladder is well distended and normal. Pre void bladder volume is 221 mL. Postvoid bladder volume is 61 mL. Prostate is enlarged at 58 mL. 09/27--2.9 05/29--4.1 11/29--2.2 When asked he reports terazosin to be working well for him. He reports sense of urinary urgency and frequency has improved. When asked he denies hematuria, incontinence, dysuria, flank pain, fever, and or chills. In office urinalysis results reviewed with the patient today. PVR 0. Patient reports to be happy with current voiding parameters on 5 mg of terazosin daily. He otherwise offers no issues or concerns at this time. [facility] Medical History JOSEPH (obstructive sleep apnea) COPD (chronic obstructive pulmonary disease) Surgical History History of cataract surgery Family History Mother Colon cancer Father No problems noted. Brother Heart disease Social History Alcohol intake: current Alcohol intake frequency: holidays/special occasions only Patient Tobacco Use Status: Former Tobacco user Quit Date: 1989 Smoked: 50 +/- Review of Systems Const Reports no additional complaints Eyes Reports no additional complaints ENT Reports no additional complaints Card Reports no additional complaints Resp Reports as per HPI GI Reports no additional complaints Reports as per HPI Musc Reports no additional complaints Neuro Reports no additional complaints Psych Reports no additional complaints Endo Reports no additional complaints Jesus/Lymph Reports no additional complaints Aller/Immun Reports no additional complaints Physical Exam Const General: cooperative, healthy appearing, comfortable, no acute distress, well developed, alert and awake Nutritional Appearance: overweight Orientation/consciousness: patient oriented x3 HEENT Head: Yes normal to inspection, Yes normocephalic and Yes atraumatic Ears: hearing grossly normal bilaterally Eyes General: appearance normal, both eyes and all related structures Neck Neck: Yes normal visual inspection and Yes trachea midline Chest Chest palpation & inspection: normal inspection of the chest Resp Effort & Inspection: normal respiratory effort and able to speak in complete sentences Cardio Rate: regular rate GI Inspection: Yes normal to inspection (round ) Other: KYLER- smooth, no masses or nodules palpated. General: Yes no CVA tenderness Back/Spine/Pelvis Back: no CVA tenderness Skin General skin exam: no rashes or lesions noted Neuro General: patient oriented x3 Extrem General: Yes normal to inspection Psych Appearance: grossly normal and well kempt Mental Status: mental status grossly normal Speech and movement: Normal speech and movement present and Clear speech present Affect: normal affect Attitude: cooperative Thought process: Normal thought process present Thought content: Normal thought content present Insight: Fair insight present (Psych) Judgement: Fair judgement present (Psych) Office Procedures Post Void Residual Post Residual Void Post Void Residual (PVR): 0 22552-Bmag Void Residual by ultrasound Results AMB Urinalysis, Automated UA Leukoctes 70 Eliot/uL Last Edit by Dipak Miranda on 12/04/22 14:32 UA Nitrite Negative Last Edit by Dipak Miranda on 12/04/22 14:32 UA Urobilinogen 0.2 mg/dL Last Edit by Dipak iMranda on 12/04/22 14:32 UA Protein 0 mg/dL Last Edit by Dipak Miranda on 12/04/22 14:32 UA pH 6.0 Last Edit by Dipak Miranda on 12/04/22 14:32 UA Blood 0 Dustin/uL Last Edit by Dipak Miranda on 12/04/22 14:32 UA Specific [place] 1.030 Last Edit by Dipak Miranda on 12/04/22 14:32 UA Ketone Negative Last Edit by Dipak Miranda on 12/04/22 14:32 UA Bilirubin 0 mg/dL Last Edit by Dipak Miranda on 12/04/22 14:32 UA Glucose 0 mg/dL Last Edit by Dipak Miranda on 12/04/22 14:32 Results Reviewed Results Reviewed: Laboratory Last Values Urine pH (Auto) 6.0 12/04/22 14:10 Specific [place] (Auto) 1.030 12/04/22 14:10 Urine Protein (Auto) 0 mg/dL 12/04/22 14:10 Glucose (UA)(Auto) 0 mg/dL 12/04/22 14:10 Urine Ketones (Auto) Negative 12/04/22 14:10 Urine Blood (Auto) 0 Dustin/uL 12/04/22 14:10 Urine Nitrite (Auto) Negative 12/04/22 14:10 Urine Bilirubin (Auto) 0 mg/dL 12/04/22 14:10 Urine Urobilinogen (Auto) 0.2 mg/dL 12/04/22 14:10 Leukocyte Esterase (Auto) 70 Eliot/uL 12/04/22 14:10 Assessment & Plan Assessment & Plan (1) Elevated PSA: Code(s): R97.20 - Elevated prostate specific antigen [PSA] (2) Urinary urgency: Code(s): R39.15 - Urgency of urination (3) Benign prostatic hyperplasia with lower urinary tract symptoms: Code(s): N40.1 - Benign prostatic hyperplasia with lower urinary tract symptoms Plan In office urinalysis results reviewed with the patient his today; as noted above. Recent PSA results reviewed with the patient his today; as noted above. Patient reports to be happy with current voiding parameters on 5 mg of terazosin. Continue finasteride 5 mg daily as discussed and prescribed. Patient denies any bothersome urinary issues or concerns at this time. Will obtain PSA in 6 months. Follow-up in 6 months with lab to be completed prior; or sooner with any issues, concerns, and or questions. 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 All questions were answered. Physical exam, labs, and imaging were discussed and reviewed in detail. As well as risks, benefits, and discussion of treatment choices. No major barriers to understanding were identified. The patient expressed understanding and agreement with the above treatment plan. The patient was made aware they should contact our office by phone for worsening of their current condition, the appearance of new symptoms, or with any questions or concerns. Compliance is encouraged with any medications and follow up testing that is ordered. It is a privilege to be allowed the opportunity to participate in? your urological care.? Again, if you have any questions or concerns If you have any questions or concerns please do not hesitate to contact me. The office is [phone]. This note is constructed using voice recognition software. While every effort has been made to ensure accuracy field crops harvest machine operator errors may have been included. Yours sincerely, FOZIA Park Coding Level of Care Code Est Pt Level 3 (80997) Diagnoses Elevated PSA R97.20 Urinary urgency R39.15 Benign prostatic hyperplasia with lower urinary tract symptoms N40.1 CPT Codes Post Residual Void - PVR CPT Code: 81837-Xbrp Void Residual by ultrasound ([id number])
== END 2022-12-04 15:23 | disposition home or self-care (01) ==
PROVIDERS: PCP Internal Medicine; Visit Provider Nurse Practitioner Family
DX: R97.20 Elevated prostate specific antigen [PSA] (principal); N40.1 Benign prostatic hyperplasia with lower urinary tract symptoms; R39.15 Urgency of urination
CPT/HCPCS: 99213

== ENCOUNTER → 2022-12-04 14:02 | Outpatient (BNVA) | payer MEDICARE, SELFPAY | PROVIDERS: Visit Provider Nurse Practitioner Family | DX: R97.20 Elevated prostate specific antigen [PSA] (principal); N40.1 Benign prostatic hyperplasia with lower urinary tract symptoms; R39.15 Urgency of urination; Z79.899 Other long term (current) drug therapy | CPT/HCPCS: 51798; 81003; 99212 ==

== ENCOUNTER 2023-01-07 06:33 | Outpatient (REF) | payer MEDICARE, SELFPAY ==
[2023-01-07 11:34] LABS: MANUAL DIFF FLAG NO
[2023-01-07 11:49] LABS: Basophils Absolute Auto 0.1 X10*3/uL (0.0-0.2); Basophils Percent Auto 0.8 % (0-2); Eosinophils Absolute Auto 0.4 X10*3/uL (0.0-0.4); Eosinophils Percent Auto 5.5 % (0-4); Hematocrit 39.2 % (42.0-52.0); Hemoglobin 12.6 g/dl (14.0-18.0); Imm Gran Abs Auto 0.03 X10*3/uL (0.00-0.03); Imm Gran Pct Auto 0.4 % (0.0-0.4); Lymphocytes Percent Auto 25.1 % (20-40); Mean Corpuscular HGB Conc 32.1 g/dl (31.0-36.0); Mean Corpuscular Hemoglobin 27.7 pg (27.0-33.0); Mean Corpuscular Volume 86.2 fL (80.0-98.0); Mean Platelet Volume 10.2 fL (9.4-12.4); Monocytes Absolute Auto 0.7 X10*3/uL (0.1-1.2); Monocytes Percent Auto 9.1 % (2-11); Neutrophils Absolute Auto 4.6 x10*3/uL (2.0-8.3); Neutrophils Percent Auto 59.1 % (45-73); Platelet Count 219 X10*3/uL (160-400); Red Blood Count 4.55 X10*6/uL (4.60-5.80); Red Cell Distribution Width 13.7 % (11.0-16.0); White Blood Count 7.8 X10*3/uL (4.8-10.8)
[2023-01-07 11:59] LABS: Alanine Aminotransferase 18 U/L (0-40); Albumin Level 3.8 g/dL (3.5-5.0); Alkaline Phosphatase 66 U/L (39-117); Anion Gap 13 (12-20); Aspartate Amino Transferase 22 U/L (5-37); Bilirubin Total 0.3 mg/dL (0.0-1.0); Blood Urea Nitrogen 19 mg/dL (9-16); Calcium 8.9 mg/dL (8.4-10.2); Carbon Dioxide 23 mmol/L (22-29); Chloride 109 mmol/L (96-108); Cholesterol 119 mg/dL (<200); Estimated Glomerular Filt Rate > 60; Glucose Random 109 mg/dL (60-115); HDL Cholesterol 45 mg/dL (>40); LDL Cholesterol Calculated 55 mg/dL (<100); Potassium 4.4 mmol/L (3.3-5.1); Sodium 141 mmol/L (135-145); Total Protein 6.4 g/dL (6.5-8.0); Triglycerides 95 mg/dL (<150)
[2023-01-07 12:17] LABS: Vitamin B12 1736 pg/mL (200-900)
== END 2023-01-07 06:34 | disposition home or self-care (01) ==
LOC: HO.HMGCLDS 06:33
PROVIDERS: PCP Internal Medicine; Visit Provider Internal Medicine
DX: M16.0 Bilateral primary osteoarthritis of hip (principal); E78.00 Pure hypercholesterolemia, unspecified; I10 Essential (primary) hypertension; N18.9 Chronic kidney disease, unspecified; N40.1 Benign prostatic hyperplasia with lower urinary tract symptoms
CPT/HCPCS: 36415; 80053; 80061; 82607; 85025

== ENCOUNTER 2023-04-14 09:08 | Outpatient (AMB) | payer MEDICARE, SELFPAY ==
[2023-04-14 09:17] VITALS: BP 122/70; PULSE 58; O2SAT 98; BMI 37.8
--- NOTE | 2023-04-14 09:17 | A.OFFVIS_ITS ---
Intake Vital Signs 04/14/23 09:17 Height 5 ft 5 in Weight 227 lb 1.218 oz BMI 37.8 BP 122/70 Blood Pressure Location Lt brachial Position Sitting Pulse 58 Pulse Source Pulse Oximeter Pulse Oximetry (%) 98 Oxygen Delivery Method Room Air Intake Visit Reasons: Abnormal PFT Intake Note: pt is here for follow up and feels good, he does get short of breath with exertion but just takes it easy. 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 He is being treated for moderately severe chronic obstructive pulmonary disord er. He has chronic thickening of the left pleura, probably due to an old infection. He is doing very well with use of Spiriva Respimat2.5 but claims that it is becoming very costly. He has shortness of breath only when he walks outdoors at a fast pace or if he climbs stairs. He has very little cough or expectoration. When he was checked last time he did not need O2, and he also did not qualify fo r handicap plaque. Sleep is okay, he has. No daytime sleepiness He has try to lose some weight and lost only about 2 lb in the last 6 months. [facility] Medical History JOSEPH (obstructive sleep apnea) COPD (chronic obstructive pulmonary disease) Surgical History History of cataract surgery Family History Mother Colon cancer Father No problems noted. Brother Heart disease Social History Alcohol intake: current Alcohol intake frequency: holidays/special occasions only Patient Tobacco Use Status: Former Tobacco user Quit Date: 1989 Smoked: 50 +/- Review of Systems Const All systems reviewed & are unremarkable except as noted in HPI and below Eyes Reports no additional complaints ENT Reports no additional complaints Card Denies chest pain, Denies irregular heart rhythm and Reports dyspnea on exertion Resp Reports as per HPI and Reports dyspnea on exertion GI Reports no additional complaints Reports no additional complaints Musc Reports no additional complaints Skin/Breast Reports system reviewed and no additional complaints, except as documented Neuro Reports no additional complaints Psych Reports no additional complaints Endo Reports no additional complaints Physical Exam Vital Signs: Last Vital Signs Pulse 58 04/14/23 09:17 BP 122/70 04/14/23 09:17 Pulse Ox 98 04/14/23 09:17 Oxygen Delivery Method Room Air 04/14/23 09:17 BMI result Body Mass Index 37.8 Const General: healthy appearing (EXCEPT FOR OVERWEIGHT), comfortable, no acute distress, alert and awake Orientation/consciousness: patient oriented x3 HEENT Head: Yes normal to inspection General nose exam: No nasal polyps present and No nasal discharge present Face and sinus: Yes sinuses nontender Mouth: oropharynx normal Throat: Yes posterior oropharynx normal Eyes General: appearance normal, both eyes and all related structures Neck Neck: Yes normal visual inspection, Yes no lymphadenopathy, Yes trachea midline and Yes no JVD Thyroid: Thyroid normal Chest Chest palpation & inspection: normal inspection of the chest, normal palpation of entire chest wall and no tenderness Resp Other: Percussion note is resonant, has good breath sounds on both sides. Slightly prolonged expiratory phase. No wheezes or creps. Cardio Palpation: normal PMI Rate: regular rate Rhythm: regular rhythm Heart sounds: no gallops and no murmurs Peripheral pulses: Peripheral pulses 2+ throughout GI Palpation (GI): Soft to palpation, nontender, No hepatosplenomegaly present, no masses and Other GI palpation findings present (Abdomen is moderately obese and slightly protuberant) Auscultation: normal bowel sounds Back/Spine/Pelvis Thoracic/Lumbar Spine: thoracic and lumbar spine normal to inspection Skin General skin exam: no rashes or lesions noted Neuro General: patient oriented x3 and no focal motor deficits Cranial nerves: Yes CN's II-XII intact bilaterally Extrem General: Yes normal to inspection, Yes no clubbing, cyanosis or edema and Yes no calf tenderness Psych Appearance: grossly normal and well kempt Speech and movement: Normal speech and movement present Assessment & Plan Assessment & Plan (1) COPD (chronic obstructive pulmonary disease): Comment: PATIENT DOES HAVE HISTORY OF SMOKING IN THE PAST. THERE IS EVIDENCE OF MODERATELY SEVERE OBSTRUCTIVE AIRWAY DISORDER, AT PRESENT HE IS DOING FAIRLY WELL, EXCEPT FOR MILD TO MODERATE DYSPNEA ON EXERTION. Code(s): J44.9 - Chronic obstructive pulmonary disease, unspecified Plan: TX:. Spiriva Respimat changed to Spiriva Handihalor , because of CORDERO issue DO DEEP BREATHING EXERCISES, 3 TIMES A DAY. TRY TO LOSE WEIGHT. (2) JOSEPH (obstructive sleep apnea): Comment: JOSEPH IS VERY MILD RDI 6.2 ONLY BORDERLINE NOCTURNAL HYPOXEMIA. IT CAN BE TREATED WITH CONSERVATIVE MEASURES. AT PRESENT HE DOES NOT HAVE ANY SPECIFIC ISSUE WITH HIS SLEEP. Code(s): G47.33 - Obstructive sleep apnea (adult) (pediatric) Plan: HE DOES NOT NEED TO START ON CPAP THERAPY. HAS BEEN ADVISED TO LOSE 5-10 LB OF WEIGHT. SHOULD ALSO SLEEP IN LATERAL POSITION ALL THE TIMES . Medications: New tiotropium bromide (Spiriva with HandiHaler) puncture 1 cap using device; one dose = 2 inhalations 1 cap inhalation DAILY 30 inhalations 5RF COPD 30 days Coding Level of Care Code Est Pt Level 3 (59613) Diagnoses COPD (chronic obstructive pulmonary disease) J44.9 JOSEPH (obstructive sleep apnea) G47.33
== END 2023-04-14 09:49 | disposition home or self-care (01) ==
PROVIDERS: PCP Internal Medicine; Visit Provider Internal Medicine
DX: J44.9 Chronic obstructive pulmonary disease, unspecified (principal); G47.33 Obstructive sleep apnea (adult) (pediatric)
CPT/HCPCS: 99213

== ENCOUNTER → 2023-04-14 09:08 | Outpatient (BNVA) | payer MEDICARE, SELFPAY | PROVIDERS: PCP Internal Medicine; Visit Provider Internal Medicine | DX: J44.9 Chronic obstructive pulmonary disease, unspecified (principal); G47.33 Obstructive sleep apnea (adult) (pediatric) | CPT/HCPCS: 99212 ==

== ENCOUNTER 2023-05-13 07:09 | Outpatient (REF) | payer MEDICARE, SELFPAY ==
--- NOTE | ~2023-05-13 | CT_ITS ---
EXAMINATION: CT HEAD WITHOUT CONTRAST CLINICAL INFORMATION: Dementia. COMPARISON: None. TECHNIQUE: Contiguous axial imaging was performed from the skull base to vertex without intravenous administration of contrast. This CT examination was performed using dose optimization techniques as appropriate, variously including the following: *Automated exposure control *Adjustment of mA and/or kV according to patient size (this includes techniques or standardized protocols for targeted exams where dose is matched to indication/reason for exam; i.e. extremities or head) *Use of iterative reconstruction technique DLP: 830 mGy-cm. FINDINGS: There is what appears to represent a small, chronic high left parafalcine low-density subdural collection measuring up to 1 cm in transverse dimension. This collection is contiguous with a low-density subdural collection along the anterior left frontal convexity measuring up to 0.8 cm in transverse dimension. Additionally, there is a low-density subdural collection along the right frontoparietal convexity, measuring 0.7 cm in short axis dimension. No significant mass effect is visible from these aforementioned low-density subdural collections. There is no evidence of acute intracranial hemorrhage or territorial infarction. There is a very mild rightward midline shift of structures by approximately 0.3 cm. Diffuse brain parenchymal volume loss is evident with commensurate ex vacuo dilatation of the ventricles. No evidence of hydrocephalus. Guadalupe to white matter differentiation is well preserved. Moderate chronic white matter microangiopathy noted with a small chronic lacunar infarcts in the deep guadalupe matter structures. The soft tissues are normal. The mastoid air cells are well aerated. There is mild ethmoid sinus mucosal thickening bilaterally with a significant leftward nasal septal deviation and nasal septal spurring distorting the left inferior turbinate. CT/CT head/brain wo IV con IMPRESSION: No acute intracranial hemorrhage or territorial infarction. Diffuse brain parenchymal volume loss and moderate chronic white matter microangiopathy with chronic-appearing deep guadalupe matter lacunar infarcts. No imaging findings of communicating hydrocephalus. Left frontal, left parafalcine, and right frontoparietal low-density subdural collections with a very mild leftward midline shift of structures. Findings may be due to subdural hygromas or chronic subdural hematomas.
== END 2023-05-13 07:10 | disposition home or self-care (01) ==
LOC: HO.CT 07:09
PROVIDERS: PCP Internal Medicine; Visit Provider Internal Medicine
DX: F03.90 Unspecified dementia, unspecified severity, without behavioral disturbance, psychotic disturbance, mood disturbance, and anxiety (principal)
CPT/HCPCS: 70450

== ENCOUNTER 2023-05-20 08:56 | Outpatient (AMB) | payer MEDICARE, SELFPAY ==
[2023-05-20 09:16] VITALS: BP 130/60; PULSE 60; BMI 37.2
--- NOTE | 2023-05-20 09:16 | A.OFFVIS_ITS ---
Intake Vital Signs 05/20/23 09:16 Height 5 ft 5 in Weight 223 lb 8.78 oz BMI 37.2 BP 130/60 Blood Pressure Location Lt brachial Position Sitting Pulse 60 Intake Visit Reasons: 1yr follow up Intake Note: pt its here for 1 yr f/up/pt its doing fine. 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 Operations Superintendent Name: luisette/spouse Accompanied by: Spouse Allergies No Known Allergies Allergy (Verified 04/14/23 09:21) Medication List - Last Reconciled 05/20/23 by Jaxson Kerns MD amlodipine 2.5 mg PO DAILY aspirin 81 mg PO DAILY atorvastatin 40 mg PO DAILY finasteride 5 mg PO DAILY 90 days meloxicam 7.5 mg PO DAILY Spiriva Respimat 2.5 mcg/actuation (tiotropium bromide) 2 puffs PO QAM NS terazosin 5 mg PO BEDTIME 90 days tiotropium bromide (Spiriva with HandiHaler) 1 cap inhalation DAILY 30 days HPI HPI Comments History of Present Illness Details 82 year old German speaking gentleman he re for MCCOLLUM. Accompanied by who speaks martiniquais. MCCOLLUM x 2 years Not progressive. Worse with going uphill. Shingles right leg which has slowed him down. No CP. On BP meds. Nonsmoker. Brother had CABG at 80. He was referred for exercise stress test and echocardiography. He had dyspnea on treadmil and was able to exercise for 4 minutes 11 seconds only. He achieved 6 metabolic equivalents. There was appropriate blood pressure rise. He was changed to Lexiscan which did not show any perfusion defect. Was given low-dose diuretics which did not improve his shortness of breath. He has been advised to stop the diuretics. Given ongoing dyspnea he was referred for left and right heart catheterization. He did not have any significant coronary disease. Right heart catheterization showed mildly elevated filling pressures but nothing significant was noticed. He was referred to pulmonology for further assessment. He has been started on inhalers with some improvement in his breathing. 05/20/23: He returns for follow-up. He has been doing well with inhalers. Blood pressure control is good. is asking whether he needs to see us every year. We have not found any significant coronary disease or any other pathology on his testing and he can see us as needed from here onwards. [facility] Medical History JOSEPH (obstructive sleep apnea) COPD (chronic obstructive pulmonary disease) Surgical History History of cataract surgery Family History Mother Colon cancer Father No problems noted. Brother Heart disease Social History Alcohol intake: current Alcohol intake frequency: holidays/special occasions only Patient Tobacco Use Status: Former Tobacco user Quit Date: 1989 Years Smoked: 50 +/- Review of Systems Const Denies chills, Denies fatigue, Denies fever(s), Denies frequent falls, Denies weakness, Denies weight gain and Denies weight loss ENT Denies dizziness Card Denies chest pain, Denies leg edema, Denies lightheadedness, Denies palpitations, Reports dyspnea and Reports dyspnea on exertion Resp Denies cough, Reports dyspnea and Reports dyspnea on exertion GI Denies hematochezia Musc Denies abnormal gait, Denies muscle weakness, Denies numbness, Denies radiating pain into limb and Denies tingling Neuro Denies abnormal gait, Denies dizziness, Denies frequent falls, Denies numbness, Denies tingling and Denies weakness Endo Denies fatigue and Denies palpitations Physical Exam Vital Signs: Last Vital Signs Pulse 60 05/20/23 09:16 BP 130/60 05/20/23 09:16 BMI result Body Mass Index 37.2 GENERAL APPEARANCE: in no acute distress, pleasant. NECK: no carotid bruit, No jugular venous distention. SKIN: no suspicious lesions, warm and dry. HEART: no murmurs, regular rate and rhythm. LUNGS: Clear to auscultation bilaterally. ABDOMEN: soft, nontender. EXTREMITIES: no edema. PERIPHERAL PULSES: equal. NEUROLOGIC: No gross deficits, AAO X 3 Office Procedures EKG Details: Sinus rhythm 60 beats per minute, premature atrial complexes, septal infarct, QTC 398 milliseconds. [id number], Complete Assessment & Plan Assessment & Plan (1) MCCOLLUM (dyspnea on exertion): Comment: MODERATE DYSPNEA ON EXERTION IS CONSISTENT WITH MODERATELY SEVERE COPD , AND BEING OVERWEIGHT, NO EXERCISE INDUCED HYPOXEMIA WAS NOTED. Code(s): R06.00 - Dyspnea, unspecified Plan [age] gentleman who is here for follow-up. He was seen for dyspnea on exertion underwent left and right heart catheterization. He did not have any significant coronary disease. His filling pressures are mildly elevated. He did not respond to diuretic therapy. He was referred to pulmonology and was diagnosed with moderate to severe COPD and since then has been on inhalers with good improvement in shortness of breath. His blood pressure is well controlled currently on amlodipine. Clinically stable and can see us as needed. Thank you for allowing me to participate in the care of your patient. Please feel free to contact me if you have any questions. Coding Level of Care Code Est Pt Level 3 (12108) Diagnoses MCCOLLUM (dyspnea on exertion) R06.00 CPT Codes EKG - CPT: 69374-[id number], Complete ([id number])
== END 2023-05-20 09:51 | disposition home or self-care (01) ==
PROVIDERS: PCP Internal Medicine; Visit Provider Internal Medicine Cardiovascular Disease
DX: R06.00 Dyspnea, unspecified (principal)
CPT/HCPCS: 93010; 99213

== ENCOUNTER → 2023-05-20 08:56 | Outpatient (BNVA) | payer MEDICARE, SELFPAY | PROVIDERS: PCP Internal Medicine; Visit Provider Internal Medicine Cardiovascular Disease | DX: J44.9 Chronic obstructive pulmonary disease, unspecified (principal); R06.00 Dyspnea, unspecified | CPT/HCPCS: 93005; 99212 ==

== ENCOUNTER 2023-06-01 06:21 | Outpatient (REF) | payer MEDICARE, SELFPAY ==
[2023-06-01 12:52] LABS: Prostate Specific Antigen 1.41 ng/mL (<0.05-4.0)
== END 2023-06-01 06:22 | disposition home or self-care (01) ==
LOC: HO.HMGCLDS 06:21
PROVIDERS: PCP Internal Medicine; Visit Provider Nurse Practitioner Family
DX: R97.20 Elevated prostate specific antigen [PSA] (principal); Z12.5 Encounter for screening for malignant neoplasm of prostate
CPT/HCPCS: 36415; 84153

== ENCOUNTER 2023-06-05 09:41 | Outpatient (AMB) | payer MEDICARE, SELFPAY ==
--- NOTE | 2023-06-05 09:52 | A.OFFVIS_ITS ---
Intake Intake Visit Reasons: 6 month psa(set) Intake Note: Patient is present for follow up elevated psa/lab/BPH PSA: 1.41 Urology Medications: terazosin, finasteride Blood Thinner: aspirin PVR: 2ml's Tool Liaison Required: No Accompanied by: Self / Same As Patient Allergies No Known Allergies Allergy (Verified 06/06/23 13:04) Medication List - Last Reconciled 06/06/23 by HALIMA ParkP- amlodipine 2.5 mg PO DAILY aspirin 81 mg PO DAILY atorvastatin 40 mg PO DAILY finasteride 5 mg PO DAILY 90 days meloxicam 7.5 mg PO DAILY Spiriva Respimat 2.5 mcg/actuation (tiotropium bromide) 2 puffs PO QAM NS terazosin 5 mg PO BEDTIME 90 days tiotropium bromide (Spiriva with HandiHaler) 1 cap inhalation DAILY 30 days HPI HPI Comments History of Present Illness Details Johnathan is a pleasant 82-year-old male patient of Dr. Sheriff who was accompanied by his at today's visit. He has a past medical history of COPD and JOSEPH. He is being seen today for a follow up of his elevated PSA and lower urinary tract symptoms. In discussion with the patient today reports to be doing and feeling well. Recent PSA results reviewed with the patient and his today as noted below. Previous workup has included a retroperitoneal ultrasound that showed bilateral kidneys with no calculi, lesions, or hydronephrosis noted. The bladder is well distended and normal. Pre void bladder volume is 221 mL. Postvoid bladder volume is 61 mL. Prostate is enlarged at 58 mL. 09/27--2.9 05/29--4.1 11/29--2.2 05/30-- 1.4 When asked he reports terazosin to be working well for him. He reports sense of urinary urgency and frequency has improved. He does report episodes of nocturia 2-3 times per night however discusses it is intermittent and at times infrequent. When asked he denies hematuria, incontinence, dysuria, flank pain, fever, and or chills. In office urinalysis results reviewed with the patient today. PVR 2ml's. Patient reports to be happy with current voiding parameters on 5 mg of terazosin daily. He otherwise offers no issues or concerns at this time. [facility] Medical History JOSEPH (obstructive sleep apnea) COPD (chronic obstructive pulmonary disease) Surgical History History of cataract surgery Family History Mother Colon cancer Father No problems noted. Brother Heart disease Social History Alcohol intake: current Alcohol intake frequency: holidays/special occasions only Patient Tobacco Use Status: Former Tobacco user Quit Date: 1989 Smoked: 50 +/- Review of Systems Const Reports no additional complaints Eyes Reports no additional complaints ENT Reports no additional complaints Card Reports no additional complaints Resp Reports as per HPI GI Reports no additional complaints Reports as per HPI Musc Reports no additional complaints Neuro Reports no additional complaints Psych Reports no additional complaints Endo Reports no additional complaints Jesus/Lymph Reports no additional complaints Aller/Immun Reports no additional complaints Physical Exam Const General: cooperative, healthy appearing, comfortable, no acute distress, well developed, alert and awake Nutritional Appearance: overweight Orientation/consciousness: patient oriented x3 HEENT Head: Yes normal to inspection, Yes normocephalic and Yes atraumatic Ears: hearing grossly normal bilaterally Eyes General: appearance normal, both eyes and all related structures Neck Neck: Yes normal visual inspection and Yes trachea midline Chest Chest palpation & inspection: normal inspection of the chest Resp Effort & Inspection: normal respiratory effort and able to speak in complete sentences Cardio Rate: regular rate GI Inspection: Yes normal to inspection (round ) Other: KYLER- smooth, no masses or nodules palpated. General: Yes no CVA tenderness Back/Spine/Pelvis Back: no CVA tenderness Skin General skin exam: no rashes or lesions noted Neuro General: patient oriented x3 Extrem General: Yes normal to inspection Psych Appearance: grossly normal and well kempt Mental Status: mental status grossly normal Speech and movement: Normal speech and movement present and Clear speech present Affect: normal affect Attitude: cooperative Thought process: Normal thought process present Thought content: Normal thought content present Insight: Fair insight present (Psych) Judgement: Fair judgement present (Psych) Office Procedures Post Void Residual Post Residual Void Post Void Residual (PVR): 2 [id number] Void Residual by ultrasound Results AMB Urinalysis, Automated UA Leukoctes 15 Eliot/uL Last Edit by Dipak Miranda on 06/05/23 10:09 UA Nitrite Negative Last Edit by Dipak Miranda on 06/05/23 10:09 UA Urobilinogen 0.2 mg/dL Last Edit by Dipak Miranda on 06/05/23 10:09 UA Protein 15 mg/dL Last Edit by Dipak Miranda on 06/05/23 10:09 UA pH 5.5 Last Edit by Dipak Miranda on 06/05/23 10:09 UA Blood 0 Dustin/uL Last Edit by Dipak Miranda on 06/05/23 10:09 UA Specific [place] 1.030 Last Edit by Dipak Miranda on 06/05/23 10:09 UA Ketone Positive Last Edit by Dipak Miranda on 06/05/23 10:09 UA Bilirubin 0 mg/dL Last Edit by Dipak iMranda on 06/05/23 10:09 UA Glucose 0 mg/dL Last Edit by Dipak Miranda on 06/05/23 10:09 Results Reviewed Results Reviewed: Laboratory Last Values Urine pH (Auto) 5.5 06/05/23 09:56 Specific [place] (Auto) 1.030 06/05/23 09:56 Urine Protein (Auto) 15 mg/dL 06/05/23 09:56 Glucose (UA)(Auto) 0 mg/dL 06/05/23 09:56 Urine Ketones (Auto) Positive 06/05/23 09:56 Urine Blood (Auto) 0 Dustin/uL 06/05/23 09:56 Urine Nitrite (Auto) Negative 06/05/23 09:56 Urine Bilirubin (Auto) 0 mg/dL 06/05/23 09:56 Urine Urobilinogen (Auto) 0.2 mg/dL 06/05/23 09:56 Leukocyte Esterase (Auto) 15 Eliot/uL 06/05/23 09:56 Assessment & Plan Assessment & Plan (1) Elevated PSA: Code(s): R97.20 - Elevated prostate specific antigen [PSA] (2) Urinary urgency: Code(s): R39.15 - Urgency of urination (3) Benign prostatic hyperplasia with lower urinary tract symptoms: Code(s): N40.1 - Benign prostatic hyperplasia with lower urinary tract symptoms Plan In office urinalysis results reviewed with the patient his today; as noted above. PVR 2ml's. Recent PSA results reviewed with the patient his today; as noted above. Patient reports to be happy with current voiding parameters on 5 mg of terazosin. Continue finasteride 5 mg daily as discussed and prescribed. Patient denies any bothersome urinary issues or concerns at this time. Will obtain PSA in 6 months. Follow-up in 6 months with lab to be completed prior; or sooner with any issues, concerns, and or questions. Orders: Orders AMB Urinalysis Automated 06/05/23 Z13.9 - Encounter for screening, unspecified AMB Post Void Residual by ultrasound 06/05/23 R39.15 - Urgency of urination Prostate Specific Antigen 6 Months R97.20 - Elevated prostate specific antigen [PSA] Patient Instructions: The patient had an opportunity to ask questions regarding the treatment plan. All questions were answered. Physical exam, labs, and imaging were discussed and reviewed in detail. As well as risks, benefits, and discussion of treatment choices. No major barriers to understanding were identified. The patient expressed understanding and agreement with the above treatment plan. The patient was made aware they should contact our office by phone for worsening of their current condition, the appearance of new symptoms, or with any questions or concerns. Compliance is encouraged with any medications and follow up testing that is ordered. It is a privilege to be allowed the opportunity to participate in? your urological care.? Again, if you have any questions or co ncerns If you have any questions or concerns please do not hesitate to contact me. The office is [phone]. This note is constructed using voice recognition software. While every effort has been made to ensure accuracy legal officer errors may have been included. Yours sincerely, [place] Coding Level of Care Code Est Pt Level 3 (27651) Diagnoses Elevated PSA R97.20 Urinary urgency R39.15 Benign prostatic hyperplasia with lower urinary tract symptoms N40.1 CPT Codes Post Residual Void - PVR CPT Code: 86966-Sxhy Void Residual by ultrasound ([id number])
== END 2023-06-05 10:35 | disposition home or self-care (01) ==
PROVIDERS: PCP Internal Medicine; Visit Provider Nurse Practitioner Family
DX: N40.1 Benign prostatic hyperplasia with lower urinary tract symptoms (principal); R97.20 Elevated prostate specific antigen [PSA]; R39.15 Urgency of urination
CPT/HCPCS: 99213

== ENCOUNTER → 2023-06-05 09:41 | Outpatient (BNVA) | payer MEDICARE, SELFPAY | PROVIDERS: PCP Internal Medicine; Visit Provider Nurse Practitioner Family | DX: N40.1 Benign prostatic hyperplasia with lower urinary tract symptoms (principal); R39.15 Urgency of urination; R97.20 Elevated prostate specific antigen [PSA] | CPT/HCPCS: 51798; 81003; 99212 ==

== ENCOUNTER 2023-10-27 09:38 | Outpatient (AMB) | payer MEDICARE, SELFPAY ==
[2023-10-27 09:42] VITALS: BP 120/68; PULSE 55; O2SAT 96; BMI 36.7
--- NOTE | 2023-10-27 09:42 | A.OFFVIS_ITS ---
Vital Signs 10/27/23 09:42 Height 5 ft 5 in Weight 220 lb 7.396 oz BMI 36.7 BP 120/68 Blood Pressure Location Lt brachial Position Sitting Pulse 55 Pulse Source Pulse Oximeter Pulse Oximetry (%) 96 Oxygen Delivery Method Room Air Intake Visit Reasons: dyspnea Intake Note: pt is here for follow up and he only does have short of breath mostly in am, he is walking. 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 Allergies No Known Allergies Allergy (Verified 10/27/23 09:53) Medication List - Last Reconciled 10/27/23 by Jr Whyte MD amlodipine 2.5 mg PO DAILY aspirin 81 mg PO DAILY atorvastatin 40 mg PO DAILY finasteride 5 mg PO DAILY 90 days meloxicam 7.5 mg PO DAILY Spiriva Respimat 2.5 mcg/actuation (tiotropium bromide) 2 puffs PO QAM NS terazosin 5 mg PO BEDTIME 90 days tiotropium bromide (Spiriva with HandiHaler) 1 cap inhalation DAILY 30 days Do you need a note to return to daycare/school/sports/work: No HPI HPI dyspnea: Details: 82 years old very pleasant gentleman is here for his 6 months follow-up. Breathing elizondo has been doing well. He walks with a walker somewhat slow so does not get short of breath when he walks. He has only occasional cough but no wheezing attacks. He is using Spiriva Respimat 2.5 2 inhalations daily ( did not get Spiriva HandiHaler, as marlow was similar) He sleeps well and denies frequent awakening. Weight remains unchanged. [facility] Medical History JOSEPH (obstructive sleep apnea) COPD (chronic obstructive pulmonary disease) Surgical History History of cataract surgery Family History Mother Colon cancer Father No problems noted. Brother Heart disease Social History Alcohol intake: current Alcohol intake frequency: holidays/special occasions only Patient Tobacco Use Status: Former Tobacco user Years Smoked: 50 +/- Review of Systems Const All systems reviewed & are unremarkable except as noted in HPI and below Eyes Reports no additional complaints ENT Reports no additional complaints Card Denies chest pain, Denies irregular heart rhythm and Reports dyspnea on exertion Resp Reports as per HPI and Reports dyspnea on exertion GI Reports no additional complaints Reports no additional complaints Musc Reports no additional complaints Skin/Breast Reports system reviewed and no additional complaints, except as documented Neuro Reports no additional complaints Psych Reports no additional complaints Endo Reports no additional complaints Physical Exam Vital Signs: Last Vital Signs Pulse 55 10/27/23 09:42 BP 120/68 10/27/23 09:42 Pulse Ox 96 10/27/23 09:42 Oxygen Delivery Method Room Air 10/27/23 09:42 BMI result Body Mass Index 36.7 Const General: healthy appearing (EXCEPT FOR OVERWEIGHT), comfortable, no acute distress, alert and awake Orientation/consciousness: patient oriented x3 HEENT Head: Yes normal to inspection General nose exam: No nasal polyps present and No nasal discharge present Face and sinus: Yes sinuses nontender Mouth: oropharynx normal Throat: Yes posterior oropharynx normal Eyes General: appearance normal, both eyes and all related structures Neck Neck: Yes normal visual inspection, Yes no lymphadenopathy, Yes trachea midline and Yes no JVD Thyroid: Thyroid normal Chest Chest palpation & inspection: normal inspection of the chest, normal palpation of entire chest wall and no tenderness Resp Other: Percussion note is resonant, has good breath sounds on both sides. Slightly prolonged expiratory phase. No wheezes or creps. Cardio Palpation: normal PMI Rate: regular rate Rhythm: regular rhythm Heart sounds: no gallops and no murmurs Peripheral pulses: Peripheral pulses 2+ throughout GI Palpation (GI): Soft to palpation, nontender, No hepatosplenomegaly present, no masses and Other GI palpation findings present (Abdomen is moderately obese and slightly protuberant) Auscultation: normal bowel sounds Back/Spine/Pelvis Thoracic/Lumbar Spine: thoracic and lumbar spine normal to inspection Skin General skin exam: no rashes or lesions noted Neuro General: patient oriented x3 and no focal motor deficits Cranial nerves: Yes CN's II-XII intact bilaterally Extrem General: Yes normal to inspection, Yes no clubbing, cyanosis or edema and Yes no calf tenderness Psych Appearance: grossly normal and well kempt Speech and movement: Normal speech and movement present Assessment & Plan Assessment & Plan (1) COPD (chronic obstructive pulmonary disease): Comment: PATIENT DOES HAVE HISTORY OF SMOKING IN THE PAST. THERE IS EVIDENCE OF MODERATELY SEVERE OBSTRUCTIVE AIRWAY DISORDER, AT PRESENT HE IS DOING FAIRLY WELL, EXCEPT FOR MILD TO MODERATE DYSPNEA ON EXERTION. Code(s): J44.9 - Chronic obstructive pulmonary disease, unspecified Category: Medical Plan: Advised to continue using Spiriva Respimat 2.5 2 inhalations daily. Use albuterol HFA 2 puffs Q 6 hours but only p.r.n. if there is any wheezing. (2) JOSEPH (obstructive sleep apnea): Comment: JOSEPH IS VERY MILD RDI 6.2 ONLY BORDERLINE NOCTURNAL HYPOXEMIA. PATIENT HAD OPTED TO BE TREATED WITH WITH CONSERVATIVE MEASURES. AT PRESENT HE DOES NOT HAVE ANY SPECIFIC ISSUE WITH HIS SLEEP. Code(s): G47.33 - Obstructive sleep apnea (adult) (pediatric) Category: Medical Plan: ADVISED TO ALWAYS SLEEP IN LATERAL POSITION, AND TRY TO LOSE WEIGHT EVEN BY A FEW LB IF POSSIBLE. Coding Level of Care Code Est Pt Level 3 (39451) Diagnoses COPD (chronic obstructive pulmonary disease) J44.9 JOSEPH (obstructive sleep apnea) G47.33
== END 2023-10-27 09:54 | disposition home or self-care (01) ==
PROVIDERS: PCP Internal Medicine; Visit Provider Internal Medicine
DX: J44.9 Chronic obstructive pulmonary disease, unspecified (principal); G47.33 Obstructive sleep apnea (adult) (pediatric)
CPT/HCPCS: 99213

== ENCOUNTER → 2023-10-27 09:38 | Outpatient (BNVA) | payer MEDICARE, SELFPAY | PROVIDERS: PCP Internal Medicine; Visit Provider Internal Medicine | DX: J44.9 Chronic obstructive pulmonary disease, unspecified (principal); G47.33 Obstructive sleep apnea (adult) (pediatric) | CPT/HCPCS: 99212 ==

== ENCOUNTER 2023-12-01 06:08 | Outpatient (REF) | payer MEDICARE, SELFPAY ==
[2023-12-01 10:57] LABS: Prostate Specific Antigen 1.32 ng/mL (<0.05-4.0)
== END 2023-12-01 06:09 | disposition home or self-care (01) ==
LOC: HO.HMGCLDS 06:08
PROVIDERS: PCP Internal Medicine; Visit Provider Nurse Practitioner Family
DX: R97.20 Elevated prostate specific antigen [PSA] (principal); Z12.5 Encounter for screening for malignant neoplasm of prostate
CPT/HCPCS: 36415; 84153

== ENCOUNTER 2023-12-08 08:34 | Outpatient (AMB) | payer MEDICARE, SELFPAY ==
--- NOTE | 2023-12-08 08:44 | A.OFFVIS_ITS ---
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 Sheriff who was accompanied by his at today's visit. He has a past medical history of COPD and JOSEPH. He is being seen today for a follow up of his elevated PSA and lower urinary tract symptoms. In discussion with the patient today reports to be doing and feeling well. Recent PSA results reviewed with the patient and his today as noted below. Previous workup has included a retroperitoneal ultrasound that showed bilateral kidneys with no calculi, lesions, or hydronephrosis noted. The bladder is well distended and normal. Pre void bladder volume is 221 mL. Postvoid bladder volume is 61 mL. Prostate is enlarged at 58 mL. 09/27 2.9, 05/29 4.1, 11/29 2.2, 05/30 1.4, 11/30 1.3 When asked he reports terazosin to be working well for him. He reports sense of urinary urgency and frequency has improved. He does report episodes of nocturia 2-3 times per night however discusses it is intermittent and at times infrequent. When asked he denies hematuria, incontinence, dysuria, flank pain, fever, and or chills. In office urinalysis results reviewed with the patient today. PVR 44ml's. Patient reports to be happy with current voiding parameters on 5 mg of terazosin daily. He otherwise offers no issues or concerns at this time. [facility] Medical History JOSEPH (obstructive sleep apnea) COPD (chronic obstructive pulmonary disease) Surgical History History of cataract surgery Family History Mother Colon cancer Father No problems noted. Brother Heart disease Social History Alcohol intake: current Alcohol intake frequency: holidays/special occasions only Patient Tobacco Use Status: Former Tobacco user Years Smoked: 50 +/- Review of Systems Const Reports no additional complaints Eyes Reports no additional complaints ENT Reports no additional complaints Card Reports no additional complaints Resp Reports as per HPI GI Reports no additional complaints Reports as per HPI Musc Reports no additional complaints Neuro Reports no additional complaints Psych Reports no additional complaints Endo Reports no additional complaints Jesus/Lymph Reports no additional complaints Aller/Immun Reports no additional complaints Physical Exam Const General: cooperative, healthy appearing, comfortable, no acute distress, well developed, alert and awake Nutritional Appearance: overweight Orientation/consciousness: patient oriented x3 Limitations: no limitations HEENT Head: Yes normal to inspection, Yes normocephalic and Yes atraumatic Ears: hearing grossly normal bilaterally Eyes General: appearance normal, both eyes and all related structures Neck Neck: Yes normal visual inspection and Yes trachea midline Chest Chest palpation & inspection: normal inspection of the chest Resp Effort & Inspection: normal respiratory effort and able to speak in complete sentences Cardio Rate: regular rate GI Inspection: Yes normal to inspection (round ) Other: KYLER- smooth, no masses or nodules palpated. General: Yes no CVA tenderness Back/Spine/Pelvis Back: no CVA tenderness Skin General skin exam: no rashes or lesions noted Neuro General: patient oriented x3 Extrem General: Yes normal to inspection Psych Appearance: grossly normal and well kempt Mental Status: mental status grossly normal Speech and movement: Normal speech and movement present and Clear speech present Affect: normal affect Attitude: cooperative Thought process: Normal thought process present Thought content: Normal thought content present Insight: Fair insight present (Psych) Judgement: Fair judgement present (Psych) Assessment & Plan Assessment & Plan (1) Elevated PSA: Code(s): R97.20 - Elevated prostate specific antigen [PSA] Category: Medical (2) Urinary urgency: Code(s): R39.15 - Urgency of urination Category: Medical (3) Benign prostatic hyperplasia with lower urinary tract symptoms: Code(s): N40.1 - Benign prostatic hyperplasia with lower urinary tract symptoms Category: Medical Plan In office urinalysis results reviewed with the patient his today; as noted above. PVR 44ml's. Recent PSA results reviewed with the patient his today; as noted above. Patient reports to be happy with current voiding parameters on 5 mg of terazosin. Continue finasteride 5 mg daily as discussed and prescribed; will decrease to Thursday Patient denies any bothersome urinary issues or concerns at this time. Will obtain PSA in 1 year Follow-up in 1 year with lab and PVR to be completed prior; or sooner with any issues, concerns, and or questions. Orders: Orders AMB Urinalysis Automated Today Z13.9 - Encounter for screening, unspecified AMB Post Void Residual by ultrasound Today R39.15 - Urgency of urination Prostate Specific Antigen 1 Year R97.20 - Elevated prostate specific antigen [PSA] Patient Instructions: The patient had an opportunity to ask questions regarding the treatment plan. All questions were answered. Physical exam, labs, and imaging were discussed and reviewed in detail. As well as risks, benefits, and discussion of treatment choices. No major barriers to understanding were identified. The patient expressed understanding and agreement with the above treatment plan. The patient was made aware they should contact our office by phone for worsening of their current condition, the appearance of new symptoms, or with any questions or concerns. Compliance is encouraged with any medications and follow up testing that is ordered. It is a privilege to be allowed the opportunity to participate in? your urological care.? Again, if you have any questions or concerns If you have any questions or concerns please do not hesitate to contact me. The office is [phone]. This note is constructed using voice recognition software. While every effort has been made to ensure accuracy nuclear instructor errors may have been included. Yours sincerely, Ramonita Max AVIATION MANAGER- Coding Level of Care Code Est Pt Level 3 (73180) Diagnoses Elevated PSA R97.20 Urinary urgency R39.15 Benign prostatic hyperplasia with lower urinary tract symptoms N40.1
== END 2023-12-08 09:40 | disposition home or self-care (01) ==
PROVIDERS: PCP Internal Medicine; Visit Provider Nurse Practitioner Family
DX: N40.1 Benign prostatic hyperplasia with lower urinary tract symptoms (principal); R97.20 Elevated prostate specific antigen [PSA]; R39.15 Urgency of urination; Z13.9 Encounter for screening, unspecified
CPT/HCPCS: 99213

== ENCOUNTER → 2023-12-08 08:34 | Outpatient (BNVA) | payer MEDICARE, SELFPAY | PROVIDERS: PCP Internal Medicine; Visit Provider Nurse Practitioner Family | DX: N40.1 Benign prostatic hyperplasia with lower urinary tract symptoms (principal); N13.8 Other obstructive and reflux uropathy; R39.15 Urgency of urination; R97.20 Elevated prostate specific antigen [PSA] | CPT/HCPCS: 51798; 81003; 99212 ==

== ENCOUNTER 2024-01-08 06:50 | Outpatient (REF) | payer MEDICARE, SELFPAY ==
[2024-01-08 10:24] LABS: MANUAL DIFF FLAG NO
[2024-01-08 10:35] LABS: Basophils Absolute Auto 0.1 X10*3/uL (0.0-0.2); Basophils Percent Auto 0.6 % (0-2); Eosinophils Absolute Auto 0.3 X10*3/uL (0.0-0.4); Eosinophils Percent Auto 4.4 % (0-4); Hematocrit 38.8 % (42.0-52.0); Hemoglobin 12.8 g/dl (14.0-18.0); Imm Gran Abs Auto 0.01 X10*3/uL (0.00-0.03); Imm Gran Pct Auto 0.1 % (0.0-0.4); Lymphocytes Absolute Auto 1.9 X10*3/uL (1.2-4.9); Lymphocytes Percent Auto 24.5 % (20-40); Mean Corpuscular Volume 84.9 fL (80.0-98.0); Monocytes Absolute Auto 0.7 X10*3/uL (0.1-1.2); Monocytes Percent Auto 8.4 % (2-11); Neutrophils Absolute Auto 4.8 x10*3/uL (2.0-8.3); Platelet Count 197 X10*3/uL (160-400); Red Blood Count 4.57 X10*6/uL (4.60-5.80); Red Cell Distribution Width 13.7 % (11.0-16.0); White Blood Count 7.7 X10*3/uL (4.8-10.8)
[2024-01-08 11:22] LABS: Alanine Aminotransferase 26 U/L (0-40); Albumin Level 3.9 g/dL (3.5-5.0); Alkaline Phosphatase 67 U/L (39-117); Anion Gap 13 (12-20); Aspartate Amino Transferase 28 U/L (5-37); Bilirubin Total 0.5 mg/dL (0.0-1.0); Blood Urea Nitrogen 24 mg/dL (9-16); Calcium 9.2 mg/dL (8.4-10.2); Carbon Dioxide 25 mmol/L (22-29); Chloride 108 mmol/L (96-108); Cholesterol 129 mg/dL (<200); Estimated Glomerular Filt Rate > 60; Glucose Random 108 mg/dL (60-115); HDL Cholesterol 51 mg/dL (>40); LDL Cholesterol Calculated 61 mg/dL (<100); Potassium 4.5 mmol/L (3.3-5.1); Sodium 141 mmol/L (135-145); Thyroid Stimulating Hormone 2.56 uIU/mL (0.32-4.0); Total Protein 6.4 g/dL (6.5-8.0); Triglycerides 88 mg/dL (<150)
[2024-01-08 11:43] LABS: Vitamin B12 1119 pg/mL (200-900)
== END 2024-01-08 06:51 | disposition home or self-care (01) ==
LOC: HO.HMGCLDS 06:50
PROVIDERS: PCP Internal Medicine; Visit Provider Internal Medicine
DX: I10 Essential (primary) hypertension (principal); F02.80 Dementia in other diseases classified elsewhere, unspecified severity, without behavioral disturbance, psychotic disturbance, mood disturbance, and anxiety; J44.9 Chronic obstructive pulmonary disease, unspecified; R00.1 Bradycardia, unspecified
CPT/HCPCS: 36415; 80053; 80061; 82607; 84443; 85025

== ENCOUNTER 2024-02-07 07:05 | Emergency (ER) | payer MEDICARE, SELFPAY ==
--- NOTE | ~2024-02-07 | XR_ITS ---
EXAMINATION: XR CHEST CLINICAL INFORMATION: Shortness of breath. Cough. COMPARISON: Chest radiograph dated 01/07/2022. TECHNIQUE: 2 views of the chest were obtained. FINDINGS: Left-sided pleural thickening and calcification, similar when compared to the prior examination. No new airspace consolidation. No pleural effusion or pneumothorax. Stable cardiomediastinal silhouette. XR/XR chest 2V IMPRESSION: 1. Left-sided pleural thickening and calcification, similar when compared to the prior examination. 2. No acute cardiopulmonary findings. Electronically signed by: Aristeo Henson MD 02/07/2024 08:42 AM [facility]
[2024-02-07 07:08] VITALS: BP 124/50; PULSE 66; RESP 20; TEMP 36.4; O2SAT 94; BMI 35.5
[2024-02-07 07:59] LABS: MANUAL DIFF FLAG NO
--- NOTE | 2024-02-07 07:59 | ED.SOB ---
HPI - SOB/Dyspnea General Chief Complaint: Dyspnea Stated Complaint: cough/copd Time Seen by Provider: 02/07/24 07:20 Source: patient Mode of arrival: ambulatory Limitations: no limitations History of Present Illness ED Provider: Hawa Cavanaugh PA-C HPI Narrative: 83 yo male with history of COPD, JOSEPH, HTN, HLD who presents to the ER for evaluation of a productive cough for the last 6 weeks. He reports SOB with exertion and in the mornings, SOB get better with rest only. He has been compliant with his spiriva. He denies any associated chest pains. He denies fevers, chills, N/V/D, abdominal pain. He has chronic LE edema that is unchangeed. He has not taken any medications for cough. he does not have a rescue albuterol inhaler. MD elicited complaint: shortness of breath and cough Pertinent past history: COPD Onset (ago): week(s) Context: occurred during exertion Timing: progressively worsening Severity: moderate Exacerbating factors: exertion Relieving factors: rest Known history of: COPD Associated symptoms: cough and sputum production Treatment prior to arrival: none Related Data Home oxygen amount: none Home Medications ?Medication ?Instructions ?Recorded ?Confirmed aspirin 81 mg tablet,delayed 81 mg PO DAILY 10/09/21 10/27/23 release amlodipine 5 mg tablet 2.5 mg PO DAILY 04/14/23 10/27/23 meloxicam 7.5 mg tablet 7.5 mg PO DAILY 04/14/23 10/27/23 Previous Rx's ?Medication ?Instructions ?Recorded tiotropium bromide 18 mcg capsule 1 cap inhalation DAILY COPD 30 04/14/23 with inhalation device (Spiriva days #30 inhalations with HandiHaler) atorvastatin 40 mg tablet 40 mg PO DAILY #90 tabs 08/13/23 Spiriva Respimat 2.5 mcg/actuation 2 puff PO QAM #4 mL 09/29/23 solution for inhalation (tiotropium bromide) terazosin 5 mg capsule 5 mg PO BEDTIME 90 days #90 caps 11/19/23 finasteride 5 mg tablet 5 mg PO DAILY 90 days #90 tabs 12/07/23 albuterol sulfate 90 mcg/actuation 2 puff inhalation QID PRN 02/07/24 aerosol inhaler shortness of breath or wheezing #8.5 grams guaifenesin 1,200 mg tablet, 1,200 mg PO BID #10 tabs 02/07/24 extended release 12 hr (Mucus-ER MAX) Allergies Allergy/AdvReac Type Severity Reaction Status Date / Time No Known Allergies Allergy Verified 02/07/24 07:09 Review of Systems Review of Systems: Yes all other systems are reviewed and are negative [facility] Past Medical History Medical History JOSEPH (obstructive sleep apnea) COPD (chronic obstructive pulmonary disease) Surgical History History of cataract surgery Family History Family History Mother Colon cancer Father No problems noted. Brother Heart disease Social History Social History Alcohol intake: current Alcohol intake frequency: holidays/special occasions only Patient Tobacco Use Status: Former Tobacco user Years Smoked: 50 +/- Smoked in Last 30 Days: No Use of substances other than those prescribed or required for medical reasons: No Advance Directives: No Advance Directives Information Provided: Yes Physical Exam Vital Signs: Vital Signs: Last Vital Signs Temp 98.0 F 02/07/24 10:43 Pulse 60 02/07/24 10:43 Resp 18 02/07/24 10:43 BP 128/62 02/07/24 10:43 Pulse Ox 98 02/07/24 10:43 O2 Del Method Room Air 02/07/24 10:43 BMI result Body Mass Index 35.5 Appearance: Alert. Oriented X3. No acute distress. Head: normocephalic, atraumatic. Eyes: Pupils equal, round and reactive to light. ENT: Pharynx normal. No tonsillar swelling or exudate. Neck: Normal inspection. Neck supple. CVS: Normal heart rate and rhythm. Pulses normal. Respiratory: No respiratory distress. Breath sounds diminished at the bases, no rales, wheezing or rhonchi Abdomen: Soft and nontender. +BS x4 Skin: Skin warm and dry. Normal skin color. Normal skin turgor. No rashes. Extremities: No lower extremity edema. No joint swelling. Neuro/psych: Oriented X 3. No motor deficit. No sensory deficit. CN II-XII intact. Normal speech and cognition. Medical Decision Making Medical Decision Making [facility] Narrative: 83 yo male presenting with COPD, JOSEPH here with SOB and MCCOLLUM x6 weeks along with reactive cough. No fevers. No chest pain. No worsening of his leg swelling. He does report he has had a change in her sputum - yellow and white. no sick contacts. VS stable here. lung sounds are clear. no wheezing to suggest COPD exacerbation CXR reviewed - unchanged from prior. no focal infiltrate. he tested positive for COVID which is likely contributing to his symptoms. no hypoxic or tachycardic. will add mucolytic and PRN albuterol. he is stable for d/c home with PCP and pulm follow up. Differential Diagnosis Differential Diagnoses: The differential diagnosis associated with the presentation includes covid, flu, rsv, other viral syndrome, bronchitis, pneumonia, copd exacerbation, chf exacerbation, doubt PE Admission/Observation Consideration of admission/observation: Escalation of care including admission/observation considered Lab Data [facility] Lab Attestation statement: I reviewed the patient's lab results. Stable anemia, mild hyperglycemia, no anion gap 02/07/24 07:53 02/07/24 07:53 Labs: Lab Results 02/07/24 Range/Units 07:53 WBC 7.7 (4.8-10.8) X10*3/uL RBC 4.44 L (4.60-5.80) X10*6/uL Hgb 12.4 L (14.0-18.0) g/dl Hct 37.9 L (42.0-52.0) % MCV 85.4 (80.0-98.0) fL MCH 27.9 (27.0-33.0) pg MCHC 32.7 (31.0-36.0) g/dl RDW 13.3 (11.0-16.0) % Plt Count 205 (160-400) X10*3/uL MPV 9.5 (9.4-12.4) fL Immature Gran % (Auto) 0.8 H (0.0-0.4) % Neut % (Auto) 71.2 (45-73) % Lymph % (Auto) 16.8 L (20-40) % [place] % (Auto) 6.6 (2-11) % Eos % (Auto) 3.9 (0-4) % Baso % (Auto) 0.7 (0-2) % Lymph # (Auto) 1.3 (1.2-4.9) X10*3/uL [place] # (Auto) 0.5 (0.1-1.2) X10*3/uL Eos # (Auto) 0.3 (0.0-0.4) X10*3/uL Baso # (Auto) 0.1 (0.0-0.2) X10*3/uL Abs Immat Gran (auto) 0.06 H (0.00-0.03) X10*3/uL Absolute Neuts (auto) 5.5 (2.0-8.3) x10*3/uL Absolute Nucleated RBC 0.000 (0.0-0.012) X10*3/uL Nucleated RBC % (auto) 0.0 (0.0-0.2) /100WBC Sodium 139 (135-145) mmol/L Potassium 4.6 (3.3-5.1) mmol/L Chloride 108 (96-108) mmol/L Carbon Dioxide 26 (22-29) mmol/L Anion Gap 10 L (12-20) BUN 23 H (9-16) mg/dL Creatinine 1.23 (0.5-1.4) mg/dL Estim Creat Clear Calc 48.5 Estimated GFR 56 Random Glucose 119 H (60-115) mg/dL Calcium 9.0 (8.4-10.2) mg/dL B-Natriuretic Peptide 113 H (<100) pg/mL Influenza Type A (PCR) NEGATIVE (Negative) Influenza Type B (PCR) NEGATIVE (Negative) RSV RNA Qual (PCR) NEGATIVE (Negative) SARS-CoV-2 RNA (RT-PCR) POSITIVE A (Negative) Independent Interpretation I performed an independent interpretation of an: EKG and Plain X-Ray Interpretation: Chest x-ray with pleural thickening on the left side which is unchanged from prior. EKG with sinus rhythm with PACs, ventricular rate 63, no ST segment elevations or depressions, some artifact is present Radiology Impression Discussion of test interpretation with radiology: I have reviewed the radiologist's reading. Independent Historian Clinical information obtained from an independent historian. History obtained from or confirmed by: Spouse External Record Review External record reviewed: Outpatient record, Prior outpatient labs and Prior outpatient radiology Prescription Management I considered prescription management with: Antiviral Chronic Conditions Patient?s care impacted by: Other (copd) Critical Care Time Critical Care Time Critical Care Time: No Discharge Plan Discharge Clinical Impression: COVID-19 Patient Disposition: Home, Self-Care Instructions: COVID-19 (Coronavirus Disease 2019) (ED) Additional Instructions: You were found to be COVID-19 POSITIVE today. Your chest x-ray and oxygen levels were reassuring. Rest. Drink plenty of fluids. Take the prescribed medication to help with your cough. Use the inhaler as needed for shortness of breath. Do not go out in public while you are not feeling well. Take over the counter cold/flu medications as needed for your symptoms. Take Tylenol and/or Motrin as needed for fevers and body aches. Follow up with your doctor this week. If you shortness of breath worsens, if you develop difficulty breathing or any other concerning symptom come back to the ER for further evaluation. Prescriptions: New albuterol sulfate 90 mcg/actuation HFA aerosol inhaler 2 puff inhalation QID PRN (Reason: shortness of breath or wheezing) Qty: 8.5 0RF guaifenesin [Mucus-ER MAX] 1,200 mg tablet extended release 12hr 1,200 mg PO BID Qty: 10 0RF No Action atorvastatin 40 mg tablet 40 mg PO DAILY Qty: 90 3RF Spiriva Respimat 2.5 mcg/actuation mist 2 puff PO QAM Qty: 4 3RF terazosin 5 mg capsule 5 mg PO BEDTIME 90 Days Qty: 90 2RF finasteride 5 mg tablet 5 mg PO DAILY 90 Days Qty: 90 4RF amlodipine 5 mg tablet 2.5 mg PO DAILY aspirin 81 mg tablet,delayed release (DR/EC) 81 mg PO DAILY meloxicam 7.5 mg tablet 7.5 mg PO DAILY tiotropium bromide [Spiriva with HandiHaler] 18 mcg capsule, w/inhalation device 1 cap inhalation DAILY 30 Days Qty: 30 5RF Rx Instructions: puncture 1 cap using device; one dose = 2 inhalations Referrals: [facility] [place] Pulmonology Services [Provider Group] Unique Sheriff MD [Primary Care Provider] - Interventions: ED Discharge Assessment Last Done: 02/07/24 10:43 Discharge Date/Time: 02/07/24 10:43 Print Language: Latvian
[2024-02-07 08:03] LABS: Basophils Absolute Auto 0.1 X10*3/uL (0.0-0.2); Basophils Percent Auto 0.7 % (0-2); Eosinophils Absolute Auto 0.3 X10*3/uL (0.0-0.4); Eosinophils Percent Auto 3.9 % (0-4); Hematocrit 37.9 % (42.0-52.0); Hemoglobin 12.4 g/dl (14.0-18.0); Imm Gran Abs Auto 0.06 X10*3/uL (0.00-0.03); Imm Gran Pct Auto 0.8 % (0.0-0.4); Lymphocytes Absolute Auto 1.3 X10*3/uL (1.2-4.9); Lymphocytes Percent Auto 16.8 % (20-40); Mean Corpuscular HGB Conc 32.7 g/dl (31.0-36.0); Mean Corpuscular Hemoglobin 27.9 pg (27.0-33.0); Mean Corpuscular Volume 85.4 fL (80.0-98.0); Mean Platelet Volume 9.5 fL (9.4-12.4); Monocytes Absolute Auto 0.5 X10*3/uL (0.1-1.2); Monocytes Percent Auto 6.6 % (2-11); Neutrophils Absolute Auto 5.5 x10*3/uL (2.0-8.3); Neutrophils Percent Auto 71.2 % (45-73); Platelet Count 205 X10*3/uL (160-400); Red Blood Count 4.44 X10*6/uL (4.60-5.80); Red Cell Distribution Width 13.3 % (11.0-16.0); White Blood Count 7.7 X10*3/uL (4.8-10.8)
--- NOTE | 2024-02-07 08:09 | ECG_ITS ---
Test Reason : SOB Blood Pressure : / mmHG Vent. Rate : 063 BPM Atrial Rate : 092 BPM P-R Int : 000 ms QRS Dur : 092 ms QT Int : 408 ms P-R-T Axes : 000 -01 049 degrees QTc Int : 417 ms Sinus rhythm with 2nd degree A-V block (Mobitz I) Anteroseptal infarct , age undetermined Abnormal ECG When compared with ECG of 04-JAN-2015 15:48, Premature atrial complexes are no longer Present Sinus rhythm is now with 2nd degree A-V block (Mobitz I) Anteroseptal infarct is now Present Referred By: Paola Cavanaugh Electronically Signed By:Jaxson Kerns
[2024-02-07 08:22] LABS: Anion Gap 10 (12-20); Blood Urea Nitrogen 23 mg/dL (9-16); Carbon Dioxide 26 mmol/L (22-29); Chloride 108 mmol/L (96-108); Creatinine Clr Calc Pharmacy 48.5; Estimated Glomerular Filt Rate 56; Glucose Random 119 mg/dL (60-115); Potassium 4.6 mmol/L (3.3-5.1); Sodium 139 mmol/L (135-145)
[2024-02-07 08:24] LABS: B Type Natriuretic Peptide 113 pg/mL (<100)
[2024-02-07 08:45] LABS: Influenza A PCR NEGATIVE (Negative); Influenza B PCR NEGATIVE (Negative); Resp Syncy Virus RNA Qual PCR NEGATIVE (Negative); SARS COV2 PCR INHOUSE POSITIVE (Negative)
[2024-02-07 10:00] VITALS: BP 128/62; PULSE 60; RESP 18; TEMP 36.7; O2SAT 98
[2024-02-07 10:43] VITALS: BP 128/62; PULSE 60; RESP 18; TEMP 36.7; O2SAT 98
== END 2024-02-07 10:43 | disposition home or self-care (01) ==
PROVIDERS: Emergency Provider Emergency Medicine; PCP Internal Medicine
DX: U07.1 COVID-19 (principal); R06.02 Shortness of breath; J44.9 Chronic obstructive pulmonary disease, unspecified; I10 Essential (primary) hypertension; R05.9 Cough, unspecified; Z87.891 Personal history of nicotine dependence; Z79.899 Other long term (current) drug therapy
CPT/HCPCS: 0241U; 71046; 80048; 83880; 85025; 93005; 99284; 99285

== ENCOUNTER → 2024-02-07 08:09 | Outpatient (BNV) | payer MEDICARE, SELFPAY | PROVIDERS: Emergency Provider Emergency Medicine; PCP Internal Medicine; Visit Provider Internal Medicine Cardiovascular Disease | DX: R94.31 Abnormal electrocardiogram [ECG] [EKG] (principal) | CPT/HCPCS: 93010 ==

== ENCOUNTER 2024-04-27 09:33 | Outpatient (AMB) | payer MEDICARE, SELFPAY ==
[2024-04-27 09:46] VITALS: BP 130/70; PULSE 55; O2SAT 97; BMI 36.5
--- NOTE | 2024-04-27 09:46 | A.OFFVIS_ITS ---
Vital Signs 04/27/24 09:46 Height 5 ft 6 in Weight 225 lb 15.581 oz BMI 36.5 BP 130/70 Blood Pressure Location Lt brachial Position Sitting Pulse 55 Pulse Source Pulse Oximeter Pulse Oximetry (%) 97 Oxygen Delivery Method Room Air Intake Visit Reasons: Dyspnea Intake Note: pt is here for follow up and feels good, just little short of breath in am. 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 Allergies No Known Allergies Allergy (Verified 04/27/24 10:10) Medication List - Last Reconciled 04/27/24 by Jr Whyte MD albuterol sulfate 90 mcg/actuation 2 puffs inhalation QID PRN amlodipine 2.5 mg PO DAILY aspirin 81 mg PO DAILY atorvastatin 40 mg PO DAILY donepezil 10 mg PO BEDTIME finasteride 5 mg PO DAILY 90 days guaifenesin ER (Mucus-ER MAX) 1,200 mg PO BID PRN meloxicam 7.5 mg PO DAILY terazosin 5 mg PO BEDTIME 90 days tiotropium bromide 2.5 mcg/actuation (Spiriva Respimat) 2 inhalations inhalation QAM Do you need a note to return to daycare/school/sports/work: No HPI HPI Dyspnea: Details: THIS 83 YEARS OLD VERY 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 HIS SPEAKS FOR HIM MOST OF THE TIME. HE DID EXPRESS THAT HE IS FEELING OKAY WITH SLIGHT. SHORTNESS OF BREATH IN THE MORNING HOURS HE IS USING SPIRIVA RESPIMAT 2 INHALATIONS DAILY AND HARDLY NEEDS TO USE. THE ALBUTEROL HE CLAIMS THAT HE DOES SLEEP OKAY. [facility] Medical History JOSEPH (obstructive sleep apnea) COPD (chronic obstructive pulmonary disease) Surgical History History of cataract surgery Family History Mother Colon cancer Father No problems noted. Brother Heart disease Social History Alcohol intake: current Alcohol intake frequency: holidays/special occasions only Patient Tobacco Use Status: Former Tobacco user Years Smoked: 50 +/- Review of Systems Const All systems reviewed & are unremarkable except as noted in HPI and below Eyes Reports no additional complaints ENT Reports no additional complaints Card Denies chest pain, Denies irregular heart rhythm and Reports dyspnea on exertion Resp Reports as per HPI and Reports dyspnea on exertion GI Reports no additional complaints Reports no additional complaints Musc Reports no additional complaints Skin/Breast Reports system reviewed and no additional complaints, except as documented Neuro Reports no additional complaints Psych Reports no additional complaints Endo Reports no additional complaints Physical Exam Vital Signs: Last Vital Signs Pulse 55 04/27/24 09:46 BP 130/70 04/27/24 09:46 Pulse Ox 97 04/27/24 09:46 Oxygen Delivery Method Room Air 04/27/24 09:46 BMI result Body Mass Index 36.5 Const General: healthy appearing (EXCEPT FOR OVERWEIGHT), comfortable, no acute distress, alert and awake Orientation/consciousness: patient oriented x3 HEENT Head: Yes normal to inspection General nose exam: No nasal polyps present and No nasal discharge present Face and sinus: Yes sinuses nontender Mouth: oropharynx normal Throat: Yes posterior oropharynx normal Eyes General: appearance normal, both eyes and all related structures Neck Neck: Yes normal visual inspection, Yes no lymphadenopathy, Yes trachea midline and Yes no JVD Thyroid: Thyroid normal Chest Chest palpation & inspection: normal inspection of the chest, normal palpation of entire chest wall and no tenderness Resp Other: Percussion note is resonant, has good breath sounds on both sides. Slightly prolonged expiratory phase. No wheezes or creps. Cardio Palpation: normal PMI Rate: regular rate Rhythm: regular rhythm Heart sounds: no gallops and no murmurs Peripheral pulses: Peripheral pulses 2+ throughout GI Palpation (GI): Soft to palpation, nontender, No hepatosplenomegaly present, no masses and Other GI palpation findings present (Abdomen is moderately obese and slightly protuberant) Auscultation: normal bowel sounds Back/Spine/Pelvis Thoracic/Lumbar Spine: thoracic and lumbar spine normal to inspection Skin General skin exam: no rashes or lesions noted Neuro General: patient oriented x3 and no focal motor deficits Cranial nerves: Yes CN's II-XII intact bilaterally Extrem General: Yes normal to inspection, Yes no clubbing, cyanosis or edema and Yes no calf tenderness Psych Appearance: grossly normal and well kempt Speech and movement: Normal speech and movement present Assessment & Plan Assessment & Plan (1) COPD (chronic obstructive pulmonary disease): Comment: PATIENT DOES HAVE HISTORY OF SMOKING IN THE PAST. THERE IS EVIDENCE OF MODERATELY SEVERE OBSTRUCTIVE AIRWAY DISORDER, AT PRESENT HE IS DOING FAIRLY WELL, EXCEPT FOR MILD TO MODERATE DYSPNEA ON EXERTION ESPECIALLY IN THE MOENINGS . Code(s): J44.9 - Chronic obstructive pulmonary disease, unspecified Category: Medical Plan: CONTINUE USING SPIRIVA RESPIMAT 2.5 MG 2 INHALATIONS DAILY. USE ALBUTEROL HFA 2 PUFFS Q 6 HOURS ONLY P.R.N.. (2) JOSEPH (obstructive sleep apnea): Comment: JOSEPH IS VERY MILD TOTAL SLEEP TIME AHI 6.2 ONLY BORDERLINE NOCTURNAL HYPOXEMIA. PATIENT HAD OPTED TO BE TREATED WITH WITH CONSERVATIVE MEASURES. AT PRESENT HE DOES NOT HAVE ANY SPECIFIC ISSUE WITH HIS SLEEP. Code(s): G47.33 - Obstructive sleep apnea (adult) (pediatric) Category: Medical Plan: HE NEEDS TO LOSE WEIGHT. HE IS ALSO ADVISED THAT HE SHOULD SLEEP IN LATERAL POSITION. Coding Level of Care Code Est Pt Level 3 (32985) Diagnoses COPD (chronic obstructive pulmonary disease) J44.9 JOSEPH (obstructive sleep apnea) G47.33
--- OUTSIDE RECORDS SUMMARY | 2024-04-27 09:51 | XMS_ITS | Data Portability ---
Author Organization [facility], [address] [place] [address] Assessment No assessment recorded. Plan of Treatment Reminders Order Date Submit Date Provider Last Modified By Organization Details Last Modified Time Details Appointments None recorded. Lab rapid flu (A+B) 2022 023 [place] [address] [address], [address] [place] [address], [phone], 3 09:31:55 rapid SARS CoV 2 Ag, QL IA, respiratory specimen 2022 023 [place] [address] [address] [facility], [address] [place] [address], [phone], 3 09:31:55 Referral None recorded. Procedures None recorded. Surgeries None recorded. Imaging None recorded. Medication Orders prednisone 10 mg tablet 2022 023 [id number], [address] [place], [address], 3 09:31:57 loratadine 10 mg tablet 2022 023 [id number], [address] [place], [address], 3 09:31:57 Patient TargetsNo targets recorded. Patient Instructions Encounter Date Encounter Id Patient Instructions Last Modified By Organization Details Last Modified Time 04/12/2022 [id number] Acute bronchitis is a common clinical condition characterized by an acute onset but persistent cough, with or without sputum production. It is typically self-limited, resolving within one to three weeks. Symptoms result from inflammation of the lower respiratory tract and are most frequently due to viral infection. Treatment is focused on patient education and supportive care. Antibiotics are not needed for the great majority of patients with acute bronchitis but are greatly overused for this condition. Reducing antibiotic use for acute bronchitis is a national and international health care priority. You were prescribed Prednisone - Here is some general Information regarding this medication. 1. Make sure you take with Food 2. Do not take right before bedtime -this should be taken during the day because it may make you a little more wired. May keep you from sleeping. 3. Prednisone will increase glucose -so if you are a diabetic then you will need to monitor your glucose closely. Please d/c if glucose goes above 300. 4. Do not take this medication with Ibuprofen In most patients, the cough persists for 1 to 3 weeks, with a average duration of 18 days. The cough may be associated with either purulent or nonpurulent sputum production The presence of purulent sputum is a nonspecific finding and does not appear to be predictive of bacterial infection or that antibiotics are needed. Non-Pharmacologica l treatment for coughin. Throat lozenges 2. Hot tea 3. Honey 4. Smoking cessation 5. Avoidance of secondhand smoke. I would plan on being seen again if any of the following symptoms develop: 1. Fever (100.5) 2. Shortness of breath 3. Wheezing 4. Worsening Cough. I would go to the ER if you develop: 1. Severe Shortness of breath 2. Chest Pain 3. Wheezing 4. Coughing up Blood [email or web address] Not available 04/12/2022 09:31:53 Reason for Referral None Reported. Results Created Date Observation Date Name Description Value Unit Range Abnormal Flag Note LastModifiedBy Organization Detail LastModifiedTime 04/12/1904/12/2022 rapid SARS CoV 2 Ag, QL IA, respi rator y speci men Unknown Analyte Normal =Negat edison Not Available gerard robledo [facility] [address] [facility], [place], [address], 04/12/2022 08:45:41 04/12/1904/12/2022 rapid SARS CoV 2 Ag, QL IA, respi rator y speci men Unknown Analyte negati ve Not Available [address]gerard robledo [address] [place], [address], 04/12/2022 08:45:41 04/12/1904/12/2022 rapid flu (A+B) Unknown Analyte Normal = Negati ve Not Available [address] [place], [address], 04/12/2022 08:45:45 04/12/19 23 04/12/2022 rapid flu (A+B) Unknown Analyte Normal = Negati ve Not Available [id number] [place], [address], 04/12/2022 08:45:45 04/12/19 23 04/12/2022 rapid flu (A+B) Unknown Analyte negati ve Not Available [id number] [place], [address], 04/12/2022 08:45:45 04/12/1904/12/2022 rapid flu (A+B) Unknown Analyte negati ve Not Available [id number] [place], [address], 04/12/2022 08:45:45 Result Notes None recorded. Problems Name Problem SNOMED Code Status Onset Date Resolution Date Notes Provider Name and Address Organization Details Recorded Time Hypertensive disorder 58476228 Active 2022 Angelica Milan null, PA - [facility] 3 08:44:43 Hyperlipidemia 77717547 Active 2022 Angelica Taran null, PA - [facility] 3 08:44:49 Chronic obstructive pulmonary disease 26473360 Active 2022 Angelica Taran null, PA - [facility] 3 08:47:49 Problem Notes None recorded. Medical Equipment None Reported. Allergies No known drug allergies Medications Name Sig Start Date Stop Date Status Note LastModified by Organization Details LastModified Time prednisone 10 mg tablet 4 pills po qd x 3 days, 3 pills po qd x 3 days, 2 pills po qd x 2 days, 1 pills po qd x 2 days 023 active Not Available Not Available Not Avai lable loratadine 10 mg tablet TAKE 1 TABLET BY MOUTH EVERY DAY active Not Available Not Available No t Available atorvastatin active Not Available Not Available Not Available amlodipine active Not Available Not Av ailable Not Available Vitals Date Recorded Body weight Body mass index (BMI) Body height Oxygen saturation Oxygen saturation in Arterial blood by Pulse oximetry Pain severity - 0-10 verbal numeric rating [Score] - Reported Heart rate Respiratory rate Body temperature Systolic blood pressure Diastolic blood pressure Provider Name and Address Organization Details Last Updated DateTime 3 59959.3 2 g 33.5 kg/m2 172.72 cm 95 % 95 % 0 61 /min 20 /min 97.9 [degF] 109 mm[Hg] 65 mm[Hg] Angelica Chirinos PA [employer] 08:47:31 Social History Question Answer Notes LastModified by [employer] ion Details LastModified Time Tobacco Smoking Status Never Smoker Angelica mcleod [facility] 04/12/2022 08:45:35 What Is Your Level Of Alcohol Consumption? None Information not available 04/12/2022 Have You Had Direct Contact, Or Contact During Intimacy, With Monkeypox Rash, Scabs, Or Body Fluids From A Person With Monkeypox? No Information not available 04/12/2022 Do You Use Any Illicit Or Recreational Drugs? No Information not available 04/12/2022 Have You Recently Traveled Abroad? No Information not available 04/12/2022 Do You Or Have You Ever Used Any Other Forms Of Tobacco Or Nicotine? No Information not available 04/12/2022 Sex: Unknown Functional Status None recorded. Mental Status None recorded. Family History Relationship Description Onset Age of this Age Resolved Age Notes LastModified by Organization Details LastModified Time Brother Heart disease Not available 2022 08:45:01 Brother Malignant neoplastic disease Not available 2022 08:45:07 Sister Alzheimer's disease Not available 2022 08:45:26 Medical History No medical history recorded. Immunizations Vaccine Type Date Status Note Provider Nam e and Address Organization Details Recorded Time zoster recombinant 2 completed Angelica Taran null, PA - [facility] 04/12/2022 08:43:12 zoster recombinant 1 completed Angelica Taran null, PA - [facility] 04/12/2022 08:43:12 Influenza, high-dose, quadrivalent, PF 2 completed Angelica Taran null, PA - [facility] 04/12/2022 08:43:12 Influenza, adjuvanted, quadrivalent, PF 1 completed Angelica Taran null, PA - [facility] 04/12/2022 08:43:13 COVID-19, mRNA, LNP-S, PF, 100 mcg/0.5mL dose or 50 mcg/0.25mL dose 1 completed Angelica Taran null, PA - [facility] 04/12/2022 08:43:13 COVID-19, mRNA, LNP-S, PF, 100 mcg/0.5mL dose or 50 mcg/0.25mL dose 2 completed Angelica Milan null, PA - [facility] 04/12/2022 08:43:13 COVID-19, mRNA, LNP-S, PF, 100 mcg/0.5mL dose or 50 mcg/0.25mL dose 1 completed Angelica Taran null, PA - [facility] 04/12/2022 08:43:13 COVID-19, mRNA, LNP-S, PF, 100 mcg/0.5mL dose or 50 mcg/0.25mL dose 1 completed Angelica Milan null, PA - [facility] 04/12/2022 08:43:13 COVID-19, mRNA, LNP-S, PF, 100 mcg/0.5mL dose or 50 mcg/0.25mL dose 1 completed Angelica Milan null, PA - [facility] 04/12/2022 08:43:13 Pneumococcal conjugate PCV20, polysaccharide [id number] conjugate, adjuvant, PF 2 completed Angelica Taran null, PA - [facility] 04/12/2022 08:43:13 COVID-19, mRNA, LNP-S, PF, 30 mcg/0.3 mL dose, jeffy-sucrose 2 completed Angelica Milan null, PA - [facility] 04/12/2022 08:43:13 COVID-19, mRNA, LNP-S, bivalent, PF, 50 mcg/0.5 mL or 25mcg/0.25 mL dose 2 completed Angelica Taran null, PA - [facility] 04/12/2022 08:43:13 Tdap 9 completed Angelica Taran null, PA - [facility] 04/12/2022 08:43:13 zoster live 1 completed Angelica Taran null, PA - [facility] 04/12/2022 08:43:13 Influenza, split virus, trivalent, PF 1 completed Angelica Milan null, PA - [facility] 04/12/2022 08:43:13 Past Encounters Encounter ID Performer Location Encounter Start Date Encounter Closed Date Diagnosis/Indication Diagnosis SNOMED-CT Code Diagnosis ICD10 Code Diagnosis Note [id number] [address] [place] [address] 12/31/2018 08:05:00 12/31/2018 08:51:34 [id number] OMAR GONZALEZ [address] [facility] [address] [place] [address] 04/12/2022 08:15:20 04/12/2022 09:35:16 Cough 32290404 R05.9 Rapid Flu is Negative Exposure t o SARS-CoV-2 817510222 Z20.822 Rapid COVID Negative Acute exac erbation of chronic obstructive pulmonary disease 285785654 J44.1 Health Concerns Section Related Observation LastModified by Organization Detai ls LastModified Time None Recorded Concern Status LastModified by Organization Details LastModified Time None Recorded Advance Directives Directive None Recorded Payers Encounter Date Sequence Insurance Name Policy Number Policy Lovelace Covered Member ID Lovelace Member ID Guarantor Name 12/31/2018 1 [facility] - MEDICARE PREFERRED (MEDICARE REPLACEMENT HMO) SUNNY Deleon [id number] 1 Johnathan Deleon 04/12/2022 1 [facility] - MEDICARE PREFERRED (MEDICARE REPLACEMENT HMO) SUNNY Deleon [id number] 1 Johnathan Deleon Notes Date Note Type Note Provider Name and Address Organization Details Recorded Time 3 text/html CoughReported bypatient.source of patient informationInformation obtained from other; Patient arrived at Urgent Care ambulatory; Spouse present Quality:productive cough Severity:worsening; moderate Duration:intermittent; 4 days Timing:worsening Context:non-smoker;history of bronchitis Modifying Factors:Lying down Associated Symptoms:no fever; no chills; no chest pain; no heartburn; no nausea; no vomiting;wheezing;post nasal dripNotes:history of COPD - he has been for a few months now coughing up lots of mucous. His states in the last 5 days this has drastically worsened. Coughing up mucous ever 5 minutes. He is having increased wheezing. HAs been taking his inhalors like normal. Not sure if cold temperatures is worsening his COPD. No fevers. Mild runny nose. No headache. No chest pain. Has not taken any other medications for mucous control. OMAR GONZALEZ [address] [place], [address], [place] - [facility] 04/12/2022 09:35:49
== END 2024-04-27 10:11 | disposition home or self-care (01) ==
PROVIDERS: PCP Internal Medicine; Visit Provider Internal Medicine
DX: J44.9 Chronic obstructive pulmonary disease, unspecified (principal); G47.33 Obstructive sleep apnea (adult) (pediatric)
CPT/HCPCS: 99213

== ENCOUNTER → 2024-04-27 09:33 | Outpatient (BNVA) | payer MEDICARE, SELFPAY | PROVIDERS: PCP Internal Medicine; Visit Provider Internal Medicine | DX: J44.9 Chronic obstructive pulmonary disease, unspecified (principal); G47.33 Obstructive sleep apnea (adult) (pediatric) | CPT/HCPCS: 99212 ==

== ENCOUNTER 2024-10-24 09:40 | Outpatient (AMB) | payer MEDICARE, SELFPAY ==
[2024-10-24 10:01] VITALS: BP 102/50; PULSE 54; O2SAT 95; BMI 35.2
--- NOTE | 2024-10-24 10:01 | A.OFFVIS_ITS ---
Vital Signs 10/24/24 10:01 Height 5 ft 6 in Weight 218 lb BMI 35.2 BP 102/50 L Blood Pressure Location Lt brachial Position Sitting Pulse 54 Pulse Source Pulse Oximeter Pulse Oximetry (%) 95 Oxygen Delivery Method Room Air Intake Visit Reasons: Dyspnea Intake Note: pt is here for follow up and states he his trouble is mostly in am, when getting dressed. 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 Allergies No Known Allergies Allergy (Verified 10/24/24 10:23) Medication List - Last Reconciled 10/24/24 by Jr Whyte MD albuterol sulfate 90 mcg/actuation 2 puffs inhalation QID PRN amlodipine 2.5 mg PO DAILY aspirin 81 mg PO DAILY atorvastatin 40 mg PO DAILY donepezil 10 mg PO BEDTIME finasteride 5 mg PO DAILY 90 days guaifenesin ER (Mucus-ER MAX) 1,200 mg PO BID PRN meloxicam 7.5 mg PO DAILY terazosin 5 mg PO BEDTIME 90 days tiotropium bromide 2.5 mcg/actuation (Spiriva Respimat) 2 inhalations inhalation QAM 90 days Do you need a note to return to daycare/school/sports/work: No HPI HPI Dyspnea: Details: FRANCISCA IS 83 YEARS OLD GENTLEMAN, YI SPEAKING, COMES FOR HIS 6 MONTHS FOLLOW-UP FOR COPD. HE DOES SPEAK SOME WORDS OF [place] AND HIS WHO COMES WITH HIM IS HELPING IN CONVERSATION. HIS CONDITION HAS REMAINED VERY STABLE, HE HAS A MILD CASE OF CHRONIC OBSTRUCTIVE PULMONARY DISEASE. HE GETS SOME NASAL CONGESTION AND COUGH ESPECIALLY IN THE MORNING HOURS, FOR THE REST OF THE DAY HE IS NOT TOO BAD. HE DOES USE SPIRIVA RESPIMAT 2 INHALATIONS DAILY IN THE MORNING AND THEN NEEDS ALBUTEROL ONLY ONCE IN A WHILE, HE HAS GUAIFENESIN ER TABLETS WHICH HE USES B.I.D. P.R.N. FOR COUGH. DOES NOT SMOKE, HAS HISTORY OF SMOKING IN THE REMOTE PAST. [facility] Medical History JOSEPH (obstructive sleep apnea) COPD (chronic obstructive pulmonary disease) Surgical History History of cataract surgery Family History Mother Colon cancer Father No problems noted. Brother Heart disease Social History Alcohol intake: current Alcohol intake frequency: holidays/special occasions only Patient Tobacco Use Status: Former Tobacco user Years Smoked: 50 +/- Review of Systems Const All systems reviewed & are unremarkable except as noted in HPI and below Eyes Reports no additional complaints ENT Reports no additional complaints Card Denies chest pain, Denies irregular heart rhythm and Reports dyspnea on exertion Resp Reports as per HPI and Reports dyspnea on exertion GI Reports no additional complaints Reports no additional complaints Musc Reports no additional complaints Skin/Breast Reports system reviewed and no additional complaints, except as documented Neuro Reports no additional complaints Psych Reports no additional complaints Endo Reports no additional complaints Physical Exam Const General: healthy appearing (EXCEPT FOR OVERWEIGHT), comfortable, no acute distress, alert and awake Orientation/consciousness: patient oriented x3 HEENT Head: Yes normal to inspection General nose exam: No nasal polyps present and No nasal discharge present Face and sinus: Yes sinuses nontender Mouth: oropharynx normal Throat: Yes posterior oropharynx normal Eyes General: appearance normal, both eyes and all related structures Neck Neck: Yes normal visual inspection, Yes no lymphadenopathy, Yes trachea midline and Yes no JVD Thyroid: Thyroid normal Chest Chest palpation & inspection: normal inspection of the chest, normal palpation of entire chest wall and no tenderness Resp Other: Percussion note is resonant, has good breath sounds on both sides. Slightly prolonged expiratory phase. No wheezes or creps. Cardio Palpation: normal PMI Rate: regular rate Rhythm: regular rhythm Heart sounds: no gallops and no murmurs Peripheral pulses: Peripheral pulses 2+ throughout GI Palpation (GI): Soft to palpation, nontender, No hepatosplenomegaly present, no masses and Other GI palpation findings present (Abdomen is moderately obese and slightly protuberant) Auscultation: normal bowel sounds Back/Spine/Pelvis Thoracic/Lumbar Spine: thoracic and lumbar spine normal to inspection Skin General skin exam: no rashes or lesions noted Neuro General: patient oriented x3 and no focal motor deficits Cranial nerves: Yes CN's II-XII intact bilaterally Extrem General: Yes normal to inspection, Yes no clubbing, cyanosis or edema and Yes no calf tenderness Psych Appearance: grossly normal and well kempt Speech and movement: Normal speech and movement present Assessment & Plan Assessment & Plan (1) COPD (chronic obstructive pulmonary disease): Comment: PATIENT DOES HAVE HISTORY OF SMOKING IN THE PAST. THERE IS EVIDENCE OF MODERATELY SEVERE OBSTRUCTIVE AIRWAY DISORDER, AT PRESENT HE IS DOING FAIRLY WELL, EXCEPT FOR MILD TO MODERATE DYSPNEA ON EXERTION ESPECIALLY IN THE MORNINGS . Code(s): J44.9 - Chronic obstructive pulmonary disease, unspecified Category: Medical Plan: CONTINUE TO USE THE SPIRIVA RESPIMAT 2.5 2 INHALATIONS DAILY IN THE MORNING. AND USE ALBUTEROL HFA 2 PUFFS Q 6 HOURS ONLY P.R.N. (2) JOSEPH (obstructive sleep apnea): Comment: JOSEPH IS VERY MILD TOTAL SLEEP TIME AHI 6.2 ONLY BORDERLINE NOCTURNAL HYPOXEMIA. PATIENT HAD OPTED TO BE TREATED WITH WITH CONSERVATIVE MEASURES. IN THE LAST 6 MONTHS HE HAS LOST ABOUT 6 LB OF WEIGHT WHICH IS A GOOD SIGN. AT PRESENT HE DOES NOT HAVE ANY SPECIFIC ISSUE WITH HIS SLEEP. Code(s): G47.33 - Obstructive sleep apnea (adult) (pediatric) Category: Medical Plan: ADVISED TO CONTINUE LOSING A FEW MORE LB Medications: Refilled albuterol sulfate 90 mcg/actuation 2 puffs inhalation QID PRN 8.5 grams 3RF shortness of breath or wheezing tiotropium bromide 2.5 mcg/actuation (Spiriva Respimat) 2 inhalations inhalation QAM 12 grams 5RF COPD 90 days Coding Level of Care Code Est Pt Level 3 (02054) Diagnoses COPD (chronic obstructive pulmonary disease) J44.9 JOSEPH (obstructive sleep apnea) G47.33
== END 2024-10-24 10:23 | disposition home or self-care (01) ==
LOC: HO.HPS 09:41
PROVIDERS: PCP Internal Medicine; Visit Provider Internal Medicine
DX: J44.9 Chronic obstructive pulmonary disease, unspecified (principal); G47.33 Obstructive sleep apnea (adult) (pediatric)
CPT/HCPCS: 99213

== ENCOUNTER → 2024-10-24 09:40 | Outpatient (BNVA) | payer MEDICARE, SELFPAY | PROVIDERS: PCP Internal Medicine; Visit Provider Internal Medicine | DX: G47.33 Obstructive sleep apnea (adult) (pediatric) (principal); J44.9 Chronic obstructive pulmonary disease, unspecified | CPT/HCPCS: 99212 ==

== ENCOUNTER 2024-12-02 07:13 | Outpatient (REF) | payer MEDICARE, SELFPAY ==
[2024-12-02 11:18] LABS: Prostate Specific Antigen 1.28 ng/mL (<0.05-4.0)
== END 2024-12-02 07:14 | disposition home or self-care (01) ==
LOC: HO.HMGCLDS 07:13
PROVIDERS: PCP Internal Medicine; Visit Provider Nurse Practitioner Family
DX: R97.20 Elevated prostate specific antigen [PSA] (principal); Z12.5 Encounter for screening for malignant neoplasm of prostate
CPT/HCPCS: 36415; 84153

== ENCOUNTER 2024-12-07 08:31 | Outpatient (AMB) | payer MEDICARE, SELFPAY ==
--- NOTE | 2024-12-07 08:34 | MHC.OFFVIS ---
Intake Visit Reasons: 1y/PSA Intake Note: patient presents today for: 1yr/PSA urology medications: finasteride, terazosin blood thinners: aspirin labs done 12/02/24: PSA 1.28 today's PVR: 21mls [employer] Required: Yes [employer] Services: [employer] Present Accompanied by: Spouse Allergies No Known Allergies Allergy (Verified 12/07/24 10:30) Medication List - Last Reconciled 12/07/24 by HALIMA ParkP- albuterol sulfate 90 mcg/actuation 2 puffs inhalation QID PRN amlodipine 2.5 mg PO DAILY aspirin 81 mg PO DAILY atorvastatin 40 mg PO DAILY donepezil 10 mg PO BEDTIME finasteride 5 mg PO DAILY 90 days guaifenesin ER (Mucus-ER MAX) 1,200 mg PO BID PRN meloxicam 7.5 mg PO DAILY terazosin 5 mg PO BEDTIME 90 days tiotropium bromide 2.5 mcg/actuation (Spiriva Respimat) 2 inhalations inhalation QAM 90 days HPI Comments Details: Johnathan is a pleasant 84-year-old male patient of Dr. Sheriff who was accompanied by his at today's visit. He has a past medical history of COPD and JOSEPH. He presents to the office today for follow-up of his elevated PSA and lower urinary tract symptoms. In discussion with the patient today he reports to be doing and feeling well. He reports compliance with finasteride and terazosin as prescribed. He denies having had any bothersome urinary issues or concerns since his last office visit here. Previous workup has included a retroperitoneal ultrasound 05/29 that noted bilateral kidneys with no calculi, lesions, or hydronephrosis noted. The bladder is well distended and normal. Pre void bladder volume is 221 mL. Postvoid bladder volume is 61 mL. Prostate is enlarged at 58 mL. PSAs are as follows: 09/27 2.9, 05/29 4.1, 11/29 2.2, 05/30 1.4, 11/30 1.3, 12/01 1.3 When asked he reports terazosin to be working well for him. He reports sense of urinary urgency and frequency have improved. He does report episodes of nocturia 2-3 times per night however discusses it is intermittent and at times infrequent. He feels it is manageable. When asked he denies hematuria, incontinence, dysuria, flank pain, fever, and or chills. In office urinalysis results reviewed with the patient today. PVR 21ml's. He reports be happy with current voiding parameters. He discusses the recent loss of his son as well as [id number]. He otherwise offers no issues or concerns at this time. [facility] Medical History JOSEPH (obstructive sleep apnea) COPD (chronic obstructive pulmonary disease) Surgical History History of cataract surgery Family History Mother Colon cancer Father No problems noted. Brother Heart disease Social History Alcohol intake: current Alcohol intake frequency: holidays/special occasions only Patient Tobacco Use Status: Former Tobacco user Years Smoked: 50 +/- Review of Systems Const Reports no additional complaints Eyes Reports no additional complaints ENT Reports no additional complaints Card Reports no additional complaints Resp Reports as per HPI GI Reports no additional complaints Reports as per HPI Musc Reports no additional complaints Neuro Reports no additional complaints Psych Reports no additional complaints Endo Reports no additional complaints Jesus/Lymph Reports no additional complaints Aller/Immun Reports no additional complaints Physical Exam Const General: cooperative, healthy appearing, comfortable, no acute distress, well developed, alert and awake Nutritional Appearance: overweight Orientation/consciousness: patient oriented x3 Limitations: no limitations HEENT Head: Yes normal to inspection, Yes normocephalic and Yes atraumatic Ears: hearing grossly normal bilaterally Eyes General: appearance normal, both eyes and all related structures Neck Neck: Yes normal visual inspection and Yes trachea midline Chest Chest palpation & inspection: normal inspection of the chest Resp Effort & Inspection: normal respiratory effort and able to speak in complete sentences Cardio Rate: regular rate GI Inspection: Yes normal to inspection (round ) Other: KYLER- smooth, no masses or nodules palpated. General: Yes no CVA tenderness Back/Spine/Pelvis Back: no CVA tenderness Skin General skin exam: no rashes or lesions noted Neuro General: patient oriented x3 Extrem General: Yes normal to inspection Psych Appearance: grossly normal and well kempt Mental Status: mental status grossly normal Speech and movement: Normal speech and movement present and Clear speech present Affect: normal affect Attitude: cooperative Thought process: Normal thought process present Thought content: Normal thought content present Insight: Fair insight present (Psych) Judgement: Fair judgement present (Psych) Office Procedures Post Void Residual Post Residual Void Post Void Residual (PVR): 21 [id number]-Acqi Void Residual by ultrasound Results AMB Urinalysis, Automated UA Leukoctes 15 Eliot/uL Last Edit by KEIKO Montilla on 12/07/24 08:54 UA Nitrite Last Edit by KEIKO Montilla on 12/07/24 08:54 UA Urobilinogen 0.2 mg/dL Last Edit by KEIKO Montilla on 12/07/24 08:54 UA Protein 15 mg/dL Last Edit by KEIKO Montilla on 12/07/24 08:54 UA pH 6.0 Last Edit by KEIKO Montilla on 12/07/24 08:54 UA Blood 0 Dustin/uL Last Edit by KEIKO Montilla on 12/07/24 08:54 UA Specific [place] 1.030 Last Edit by KEIKO Montilla on 12/07/24 08:54 UA Ketone Positive Last Edit by KEIKO Montilla on 12/07/24 08:54 UA Bilirubin 0 mg/dL Last Edit by KEIKO Montilla on 12/07/24 08:54 UA Glucose 0 mg/dL Last Edit by KEIKO Montilla on 12/07/24 08:54 Results Reviewed Results Reviewed: Laboratory Last Values Urine pH (Auto) 6.0 12/07/24 08:53 Specific [place] (Auto) 1.030 12/07/24 08:53 Urine Protein (Auto) 15 mg/dL 12/07/24 08:53 Glucose (UA)(Auto) 0 mg/dL 12/07/24 08:53 Urine Ketones (Auto) Positive 12/07/24 08:53 Urine Blood (Auto) 0 Dustin/uL 12/07/24 08:53 Urine Bilirubin (Auto) 0 mg/dL 12/07/24 08:53 Urine Urobilinogen (Auto) 0.2 mg/dL 12/07/24 08:53 Leukocyte Esterase (Auto) 15 Eliot/uL 12/07/24 08:53 Assessment & Plan Assessment & Plan (1) Elevated PSA: Code(s): R97.20 - Elevated prostate specific antigen [PSA] Category: Medical (2) Benign prostatic hyperplasia with lower urinary tract symptoms: Code(s): N40.1 - Benign prostatic hyperplasia with lower urinary tract symptoms Category: Medical (3) Urinary urgency: Code(s): R39.15 - Urgency of urination Category: Medical Plan In office urinalysis results reviewed with the patient today; as noted above. PVR 21 mL. Recent PSA results reviewed with the patient today; as noted above. He currently denies any bothersome urinary issues or concerns. He reports be happy with current voiding parameters. Will continue terazosin and finasteride as prescribed. Will continue with surveillance monitoring. Will obtain PSA in 1 year. Follow-up in 1 year with PSA and PVR; or sooner with any issues, concerns, and or questions. 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 All questions were answered. Physical exam, labs, and imaging were discussed and reviewed in detail. As well as risks, benefits, and discussion of treatment choices. No major barriers to understanding were identified. The patient expressed understanding and agreement with the above treatment plan. The patient was made aware they should contact our office by phone for worsening of their current condition, the appearance of new symptoms, or with any questions or concerns. Compliance is encouraged with any medications and follow up testing that is ordered. It is a privilege to be allowed the opportunity to participate in? your urological care.? Again, if you have any questions or concerns If you have any questions or concerns please do not hesitate to contact me. The office is [phone]. This note is constructed using voice recognition software. While every effort has been made to ensure accuracy draftsperson errors may have been included. Yours sincerely, FOZIA Park Coding Level of Care Code Est Pt Level 3 (09659) Complex EM visit Add On G2211 Diagnoses Elevated PSA R97.20 Benign prostatic hyperplasia with lower urinary tract symptoms N40.1 Urinary urgency R39.15 CPT Codes Post Residual Void - PVR CPT Code: 70609-Vrpy Void Residual by ultrasound ([id number])
== END 2024-12-07 09:01 | disposition home or self-care (01) ==
LOC: HO.HUSH 08:32
PROVIDERS: PCP Internal Medicine; Visit Provider Nurse Practitioner Family
DX: R97.20 Elevated prostate specific antigen [PSA] (principal); N40.1 Benign prostatic hyperplasia with lower urinary tract symptoms; R39.15 Urgency of urination; Z13.9 Encounter for screening, unspecified
CPT/HCPCS: 99213; G2211

== ENCOUNTER → 2024-12-07 08:31 | Outpatient (BNVA) | payer MEDICARE, SELFPAY | PROVIDERS: PCP Internal Medicine; Visit Provider Nurse Practitioner Family | DX: N40.1 Benign prostatic hyperplasia with lower urinary tract symptoms (principal); R39.15 Urgency of urination; R97.20 Elevated prostate specific antigen [PSA] | CPT/HCPCS: 51798; 81003; 99212 ==

== ENCOUNTER 2025-01-09 06:51 | Outpatient (REF) | payer MEDICARE, SELFPAY ==
--- OUTSIDE RECORDS SUMMARY | 2025-01-09 06:53 | XMS_ITS | Data Portability ---
Author Organization OMAR Burnett [facility], [address] [place] [id number] Assessment No assessment recorded. Plan of Treatment Reminders Order Date Submit Date Provider Last Modified By Organization Details Last Modified Time Details Appointments None recorded. Lab rapid flu (A+B) 2022 023 [place] [id number] [facility], [address] [place] [address], [phone], 3 09:31:55 rapid SARS CoV 2 Ag, QL IA, respiratory specimen 2022 023 [place] [address]_[facility], [address] [place] [address], [address], 3 09:31:55 Referral None recorded. Procedures None recorded. Surgeries None recorded. Imaging None recorded. Medication Orders prednisone [address] [facility] #[id number], [address] [place], [address], 3 09:31:57 loratadine 10 mg tablet [address] [facility] #[id number], [address] [facility] [place], [address], 3 09:31:57 Patient TargetsNo targets recorded. Patient Instructions Encounter Date Encounter Id Patient Instructions Last Modified By Organization Details Last Modified Time 04/12/2022 [id number] Acute bronchitis is a common clinical condition [...] Pain 3. Wheezing 4. Coughing up Blood [email or web address] Not available 04/12/2022 09:31:53 Reason for Referral None Reported. Results Created Date Observation Date Name Description Value Unit Range Abnormal Flag Note LastModifiedBy Organization Detail LastModifiedTime 04/12/1904/12/2022 rapid SARS CoV 2 Ag, QL IA, respi rator y speci men Unknown Analyte Normal =Negat edison Not Available [facility] [address] [place] [address], [place], [address], 04/12/2022 08:45:41 04/12/1904/12/2022 rapid SARS CoV 2 Ag, QL IA, respi rator y speci men Unknown Analyte negati ve Not Available gerard robledo [address] [place], [address], 04/12/2022 08:45:41 04/12/19 23 04/12/2022 rapid flu (A+B) Unknown Analyte Normal = Negati ve Not Available [address] [place], [place] [address], [address], 04/12/2022 08:45:45 04/12/19 23 04/12/2022 rapid flu (A+B) Unknown Analyte Normal = Negati ve Not Available [address] [place], [address], 04/12/2022 08:45:45 04/12/19 23 04/12/2022 rapid flu (A+B) Unknown Analyte negati ve Not Available [address] [place] [address] [place], [address], 04/12/2022 08:45:45 04/12/1904/12/2022 rapid flu (A+B) Unknown Analyte negati ve Not Available [address] [place] [address] [place], [address], 04/12/2022 08:45:45 Result Notes None recorded. Problems Name Problem SNOMED Code Status Onset Date Resolution Date Notes Provider Name and Address Organization Details Recorded Time Hypertensive disorder 57515017 Active 2022 Angelica [place] null, [place] - [facility] 3 08:44:43 Hyperlipidemia 94445651 Active 2022 Angelica [place] null, [place] - [facility] 3 08:44:49 Chronic obstructive pulmonary disease 18725490 Active 2022 Angelica Taran null, [place] - [...] Heart rate Respiratory rate Body temperature Systolic And Diastolic Provider Name and Address Organization Details Last Updated DateTime 3 76758.3 2 g 33.5 kg/m2 172.72 cm 95 % 95 % 0 61 /min 20 /min 97.9 [degF] 109/65 mm[Hg] Angelica Chiirnos [employer] 08:47:31 Social History Question Answer Notes LastModified by [employer] Details LastModified Time Tobacco Smoking Status Never Smoker Angelica mcleod [employer] [facility] 04/12/2022 08:45:35 Have You Had Direct Contact, Or Contact During Intimacy, With Monkeypox Rash, Scabs, Or Body Fluids From A Person With Monkeypox? No Information not available 04/12/2022 Have You Recently Traveled Abroad? No Information not available 04/12/2022 Sex: Unknown Functional Status Question Answer Note LastModified by [employer] Details LastModified Time Do you use any illicit or recreational drugs? No Information not available 04/12/2022 Do you or have you ever used any other forms of tobacco or nicotine? No Information not available 04/12/2022 What is your level of alcohol consumption? None Information not available 04/12/2022 Mental Status None recorded. Family History Relationship [...] Recorded Time zoster recombinant 2 completed Angelica [place] null, [place] - [facility] 04/12/2022 08:43:12 zoster recombinant 1 completed Angelica Taran null, [place] - [facility] 04/12/2022 08:43:12 Influenza, high-dose, quadrivalent, PF 2 completed Angelica Taran null, [place] - [facility] 04/12/2022 08:43:12 Influenza, adjuvanted, quadrivalent, PF 1 completed Angelica [place] null, [place] - [facility] 04/12/2022 08:43:13 COVID-19, mRNA, LNP-S, PF, 100 mcg/0.5mL dose or 50 mcg/0.25mL dose 1 completed Angelica [place] null, [place] - [facility] 04/12/2022 08:43:13 COVID-19, mRNA, LNP-S, PF, 100 mcg/0.5mL dose or 50 mcg/0.25mL dose 2 completed Angelica Taran null, [place] - [facility] 04/12/2022 08:43:13 COVID-19, mRNA, LNP-S, PF, 100 mcg/0.5mL dose or 50 mcg/0.25mL dose 1 completed Angelica Taran null, [place] - [facility] 04/12/2022 08:43:13 COVID-19, mRNA, LNP-S, PF, 100 mcg/0.5mL dose or 50 mcg/0.25mL dose 1 completed Angelica [place] null, [place] - [facility] 04/12/2022 08:43:13 COVID-19, mRNA, LNP-S, PF, 100 mcg/0.5mL dose or 50 mcg/0.25mL dose 1 completed Angelica Taran null, [place] - [facility] 04/12/2022 08:43:13 Pneumococcal conjugate PCV20, polysaccharide [id number] conjugate, adjuvant, PF 2 completed Angelica Taran null, [place] - [facility] 04/12/2022 08:43:13 COVID-19, mRNA, LNP-S, PF, 30 mcg/0.3 mL dose, jeffy-sucrose 2 completed Angelica [place] null, [place] - [facility] 04/12/2022 08:43:13 COVID-19, mRNA, LNP-S, bivalent, PF, 50 mcg/0.5 mL or 25mcg/0.25 mL dose 2 completed Angelica [place] null, [place] - [facility] 04/12/2022 08:43:13 Tdap 9 completed Angelica Taran null, [place] - [facility] 04/12/2022 08:43:13 zoster live 1 completed Angelica [place] null, [place] - [facility] 04/12/2022 08:43:13 Influenza, split virus, trivalent, PF 1 completed Angelica [place] null, [place] - [facility] 04/12/2022 08:43:13 Past Encounters Encounter ID Performer Location Encounter Start Date Encounter Closed Date Diagnosis/Indication Diagnosis SNOMED-CT Code Diagnosis ICD10 Code Diagnosis IMO Codes Diagnosis Note [id number] [facility] [address] [address] 12/31/2018 08:05:00 12/31/2018 08:51:34 [id number] OMAR GONZALEZ [facility] [address] [place] [address] 04/12/2022 08:15:20 04/12/2022 09:35:16 Cough 22213117 R05.9 Rapid Flu is Negative Exposure t o SARS-CoV-2 658102075 Z20.822 Rapid COVID Negative Acute exac erbation of chronic obstructive pulmonary disease 008552971 J44.1 Health Concerns Section Related Observation LastModified by Organization Detai ls LastModified Time None Recorded Concern Status LastModified by Organization Details LastModified Time None Recorded Advance Directives Directive None Recorded Payers Insurance Date Sequence Insurance Name Policy Number Policy Lovelace Covered Member ID Lovelace Member ID Guarantor Name 04/12/2022 1 [facility] - MEDICARE PREFERRED (MEDICARE REPLACEMENT HMO) [id number] Johnathan Deleon [id number] Johnathan Deleon Notes Date Note Type Note Provider Name and Address Organization Details Recorded Time 3 text/html CoughReported by PatientHPIFor quality, patient reportsproductive cough. For severity, patient reportsworseningbut reportsmoderate. For timing, patient reportsworsening. For context, patient reportshistory of bronchitisbut reportsnon-smoker. For associated symptoms, patient reportswheezingandpost nasal dripbut reportsno fever,no chills,no chest pain,no heartburn,no nausea, andno vomiting. For source of patient information, patient reportsinformation obtained from otherandpatient arrived at urgent care ambulatory(spouse present). For duration, patient reportsintermittentand4 days. For modifying factors, patient reportslying down.history of COPD - he has been for [...] control. OMAR GONZALEZ [address] [place], [address], [place] - [facility] 04/12/2022 09:35:49
[2025-01-09 10:38] LABS: MANUAL DIFF FLAG NO
[2025-01-09 10:52] LABS: Hematocrit 39.4 % (42.0-52.0); Hemoglobin 12.4 g/dl (14.0-18.0); Imm Gran Abs Auto 0.02 X10*3/uL (0.00-0.03); Imm Gran Pct Auto 0.3 % (0.0-0.4); Lymphocytes Absolute Auto 1.5 X10*3/uL (1.2-4.9); Mean Corpuscular HGB Conc 31.5 g/dl (31.0-36.0); Mean Corpuscular Hemoglobin 27.4 pg (27.0-33.0); Mean Corpuscular Volume 87.0 fL (80.0-98.0); NRBC Abs Auto 0.000 X10*3/uL (0.0-0.012); NRBC Pct Auto 0.0 /100WBC (0.0-0.2); Platelet Count 200 X10*3/uL (160-400); Red Blood Count 4.53 X10*6/uL (4.60-5.80); White Blood Count 6.6 X10*3/uL (4.8-10.8)
[2025-01-09 11:09] LABS: Alanine Aminotransferase 37 U/L (0-40); Albumin Level 3.9 g/dL (3.5-5.0); Alkaline Phosphatase 79 U/L (39-117); Anion Gap 10 (12-20); Aspartate Amino Transferase 34 U/L (5-37); Blood Urea Nitrogen 24 mg/dL (9-16); Calcium 8.6 mg/dL (8.4-10.2); Carbon Dioxide 27 mmol/L (22-29); Chloride 108 mmol/L (96-108); Cholesterol 135 mg/dL (<200); Estimated Glomerular Filt Rate > 60; HDL Cholesterol 53 mg/dL (>40); Potassium 4.5 mmol/L (3.3-5.1); Sodium 140 mmol/L (135-145); Total Protein 6.4 g/dL (6.5-8.0); Triglycerides 72 mg/dL (<150)
== END 2025-01-09 06:52 | disposition home or self-care (01) ==
LOC: HO.HMGCLDS 06:51
PROVIDERS: PCP Internal Medicine; Visit Provider Internal Medicine
DX: I12.9 Hypertensive chronic kidney disease with stage 1 through stage 4 chronic kidney disease, or unspecified chronic kidney disease (principal); N18.9 Chronic kidney disease, unspecified; J44.9 Chronic obstructive pulmonary disease, unspecified; E78.00 Pure hypercholesterolemia, unspecified
CPT/HCPCS: 36415; 80053; 80061; 85025